=== PATIENT | female | born 1940 | race Caucasian/White ===

== ENCOUNTER 2016-11-12 12:50 | Inpatient (IN) | payer OTHER, MEDICARE ==
[~2016-11-12] VITALS: Ht 170.2 cm; Wt 77.4 kg
[~2016-11-12 12:50] MED LIST: ACET325 PO; ALBU6.7H INH; ALPR0.25 PO; ARIC5TAB PO; BUSP10TA8 PO; CEFU1TAB43 PO; ECOT325T PO; KCL10C PO; LEVA500T PO; LIPI40TA PO; MAGO400T PO; METO10TA PO; METO50TA PO; OS-CTAB3 PO; OXYB5TAB PO; PANT40IN3 PO; PLAV75TA PO; SPIR25TA PO; SYNT88TA PO; ZOFR4TAB3 SL
[2016-11-12 13:00] VITALS: BP 125/58; PULSE 60; RESP 18; TEMP 97.9; O2SAT 95
[2016-11-12 13:14] VITALS: O2SAT 97
[2016-11-12] MEDS ORDERED: SODIUM CHLORIDE 0.9% FLUSH 5 ML FLUSH IV FLUSH PRN (13:15)
--- NOTE | 2016-11-12 13:15 | PD ---
HPI Chief Complaint: Altered Mental Status Time Seen by Provider: 13:00 Travel History International Travel<30 days: No Contact w/Intl Traveler<30days: No Traveled to known affect area: No History of Present Illness HPI This is a 76-year-old female with history of dementia, hypertension, anxiety, hypothyroidism, hyperlipidemia, coronary artery disease who presents via EMS for evaluation of lethargy. History is primarily obtained by paramedics. The patient lives with her daughter. Over the past week she has had a cough and low -grade fever. She woke up this morning more lethargic than usual which prompted evaluation. When asked the patient has pain she points at the middle of her abdomen. PFSH Past Medical History Alzheimer's Disease: Yes Autoimmune Disease: No Anxiety: Yes Heart Rhythm Problems: No Cancer: No Cardiac Catheterization: No Cardiovascular Problems: Yes High Cholesterol: No Congestive Heart Failure: No Diabetes: No Endocrine: Yes Gastrointestinal Disorders: Yes Genitourinary: No Hypertension: No Immune Disorder: No Musculoskeletal: No Neurologic: Yes Psychiatric: Yes Reproductive: No Respiratory: No Myocardial Infarction: No Thyroid Disease: Yes ?: Not : 7 Para: 7 Past Surgical History Section: Yes (1) Gynecologic Surgery: Yes (GONZÁLEZ) Hysterectomy: Yes Tonsillectomy: Yes Other Surgery: Yes (COLONOSCOPY, POLYPS REMOVED) Social History Alcohol Use: No Tobacco Use: No Substance Use: No Allergies-Medications (Allergen,Severity, Reaction): Coded Allergies: Lasix (Verified Allergy, Severe, Swelling, 09/26/14) Penicillin (Verified Allergy, Intermediate, Rash, 09/26/14) Reported Meds & Prescriptions Reported Meds & Active Scripts Active Reported Proventil Hfa 6.7 GM Inh (Albuterol Sulfate) 90 Mcg/Act Aer 2 Puff INH Q6H PRN Atorvastatin (Atorvastatin Calcium) 40 Mg Tab 40 Mg PO DAILY Oscal 500/200 D-3 (Calcium Carbonate-Vitamin D) 500-200 Mg-Unit Tab 1 Tab PO DAILY Plavix (Clopidogrel Bisulfate) 75 Mg Tab 75 Mg PO DAILY Donepezil 10 Mg Tab 10 Mg PO HS Metoprolol Tartrate 25 Mg Tab 25 Mg PO BID Pantoprazole (Pantoprazole Sodium) 40 Mg Tab 40 Mg PO DAILY Aldactone (Spironolactone) 25 Mg Tab 25 Mg PO DAILY Synthroid (Levothyroxine Sodium) 75 Mcg Tab 75 Mcg PO DAILY Namenda (Memantine) 10 Mg Tab 10 Mg PO BID Seroquel (Quetiapine Fumarate) 50 Mg Tab 50 Mg PO HS Mirtazapine 15 Mg Tab 15 Mg PO HS Review of Systems ROS Limitations: Altered Mental Status Except as stated in HPI: all other systems reviewed are Neg Physical Exam Exam Limitations: Altered Mental Status Narrative GENERAL: This is a elderly appearing female who is in no acute distress. She is grimacing some and grasping at her abdomen when asked where she has pain. She responds to some commands. SKIN: Warm and dry. No obvious open wounds or pressure ulcers. HEAD: Atraumatic. Normocephalic. EYES: Pupils equal and round. No scleral icterus. No injection or drainage. ENT: No nasal bleeding or discharge. Mucous membranes pink and moist. NECK: Trachea midline. No JVD. CARDIOVASCULAR: Regular rate and rhythm. No murmur appreciated. RESPIRATORY: No accessory muscle use. Clear to auscultation. Breath sounds equal bilaterally. No crackles no wheezing. GASTROINTESTINAL: Abdomen soft, some periumbilical tenderness to palpation without guarding. Nondistended. MUSCULOSKELETAL: No obvious deformities. No clubbing. No cyanosis. No edema. NEUROLOGICAL: Awake and alert. Arousable to voice, pain. No obvious cranial nerve deficits. Normal family sociologist strength bilaterally. PSYCHIATRIC: Appropriate mood and affect; insight and judgment normal. Data Data Last Documented VS Vital Signs Date Time Temp Pulse Resp B/P Pulse Ox O2 Delivery O2 Flow Rate FiO2 11/12/16 16:37 59 18 126/61 97 Nasal Cannula 2 11/12/16 13:00 97.9 Orders Electrocardiogram (11/12/16 13:05) Complete Blood Count With Diff (11/12/16 13:05) Comprehensive Metabolic Panel (11/12/16 13:05) Creatine Kinase (Cpk) (11/12/16 13:05) Prothrombin Time / Inr (Pt) (11/12/16 13:05) Act Partial Throm Time (Ptt) (11/12/16 13:05) Troponin I (11/12/16 13:05) Lactic Acid Sepsis Protocol (11/12/16 13:05) Chest, Single Ap (11/12/16 13:05) Ct Brain W/O Iv Contrast(Rout) (11/12/16 13:05) Ecg Monitoring (11/12/16 13:05) Iv Access Insert/Monitor (11/12/16 13:05) Oximetry (11/12/16 13:05) Sodium Chloride 0.9% Flush (Ns Flush) (11/12/16 13:15) Lipase (11/12/16 13:05) Blood Culture (11/12/16 13:05) Ct Abd/Pel W Iv Contrast(Rout) (11/12/16 13:05) Electrocardiogram (11/12/16 ) Vancomycin Inj (Vancomycin Inj) (11/12/16 14:05) Aztreonam Inj (Azactam Inj) (11/12/16 14:05) Metronidazole 500 Mg Inj (Flagyl 500 Mg (11/12/16 14:05) Sodium Chlor 0.9% 1000 Ml Inj (Ns 1000 M (11/12/16 14:05) Sodium Chlor 0.9% 1000 Ml Inj (Ns 1000 M (11/12/16 14:05) Sodium Chlor 0.9% 1000 Ml Inj (Ns 1000 M (11/12/16 14:05) Potassium Chloride (Kcl) (11/12/16 14:15) Urinalysis - C+S If Indicated (11/12/16 14:30) Potassium Chlor 10 Meq Premix (Kcl 10 Me (11/12/16 14:45) Urine Culture (11/12/16 13:59) Iohexol 350 Inj (Omnipaque 350 Inj) (11/12/16 15:52) Urinary Catheter Management MARY BETH.Q8H (11/12/16 15:54) Admit Order (Ed Use Only) (11/12/16 16:45) Mri Brain W&W/O Contrast (11/12/16 ) Labs Laboratory Tests Test 11/12/16 11/12/16 13:05 13:59 White Blood Count 8.2 TH/MM3 Red Blood Count 3.56 MIL/MM3 Hemoglobin 11.3 GM/DL Hematocrit 33.5 % Mean Corpuscular Volume 94.0 FL Mean Corpuscular Hemoglobin 31.8 PG Mean Corpuscular Hemoglobin 33.8 % Concent Red Cell Distribution Width 13.2 % Platelet Count 128 TH/MM3 Mean Platelet Volume 8.7 FL Neutrophils (%) (Auto) 36.9 % Lymphocytes (%) (Auto) 53.3 % Monocytes (%) (Auto) 5.1 % Eosinophils (%) (Auto) 3.9 % Basophils (%) (Auto) 0.8 % Neutrophils # (Auto) 3.0 TH/MM3 Lymphocytes # (Auto) 4.4 TH/MM3 Monocytes # (Auto) 0.4 TH/MM3 Eosinophils # (Auto) 0.3 TH/MM3 Basophils # (Auto) 0.1 TH/MM3 CBC Comment AUTO DIFF Differential Comment AUTO DIFF CONFIRMED Platelet Estimate LOW Platelet Morphology Comment NORMAL Ovalocytes 1+ Prothrombin Time 11.0 SEC Prothromb Time International 1.0 RATIO Ratio Activated Partial 24.6 SEC Thromboplast Time Sodium Level 142 MEQ/L Potassium Level 3.3 MEQ/L Chloride Level 107 MEQ/L Carbon Dioxide Level 20.7 MEQ/L Anion Gap 14 MEQ/L Blood Urea Nitrogen 14 MG/DL Creatinine 0.98 MG/DL Estimat Glomerular Filtration 55 ML/MIN Rate Random Glucose 119 MG/DL Lactic Acid Level 3.7 mmol/L Calcium Level 8.8 MG/DL Total Bilirubin 0.6 MG/DL Aspartate Amino Transf 18 U/L (AST/SGOT) Alanine Aminotransferase 18 U/L (ALT/SGPT) Alkaline Phosphatase 108 U/L Total Creatine Kinase 30 U/L Troponin I LESS THAN 0.02 NG/ML Total Protein 6.2 GM/DL Albumin 3.2 GM/DL Lipase 68 U/L Urine Color YELLOW Urine Turbidity CLEAR Urine pH 6.5 Urine Specific [place] 1.015 Urine Protein NEG mg/dL Urine Glucose (UA) NEG mg/dL Urine Ketones NEG mg/dL Urine Occult Blood NEG Urine Nitrite NEG Urine Bilirubin NEG Urine Urobilinogen LESS THAN 2.0 MG/DL Urine Leukocyte Esterase NEG Urine RBC LESS THAN 1 /hpf Urine WBC LESS THAN 1 /hpf Urine Squamous Epithelial <1 /hpf Cells Urine Bacteria RARE /hpf Urine Mucus FEW /lpf Microscopic Urinalysis Comment CATH-CULTURE IND MDM Medical Decision Making Medical Screen Exam Complete: Yes Emergency Medical Condition: Yes Medical Record Reviewed: Yes Interpretation(s) EKG showed atrial fibrillation rate of 55, EKG is essentially unchanged from previous on September 26, 2014 CONCLUSION: 1. The cause of the patient's abdominal pain is not seen. 2. Varices in the left upper quadrant. This could be related to portal hypertension. The spleen is not enlarged, however. 3. 1.7 cm mass seen at the posteromedial left lower chest. This is incompletely evaluated on the CT of the abdomen. A CT of the chest would be recommended. 4. Fatty infiltration of the pancreas. 5. Colonic diverticula. Differential Diagnosis Pneumonia, intracranial hemorrhage, sepsis, diverticulitis, colitis, appendicitis, obstruction Narrative Course 76 year old female with baseline dementia presents with worsening lethargy for at least one day. She is also had a cough for the past week. On examination she appears to be having periumbilical abdominal pain. Plan is for basic lab work, CT brain, CT abdomen and pelvis, chest x-ray. IV established, ECG, ECG monitoring, pulse oximetry. The patient's lab work and imaging studies been reviewed. Elevated lactic acid , potassium 3.3, given IV potassium here, chest x-ray mild right lung perihilar opacity indicating atelectasis versus minimal consolidation, CT brain reveals 0.8 year hyperdense extra-axial mass. MRI is been ordered to further evaluate this. The patient was given IV fluids, broad-spectrum antibiotics. She will be admitted for sepsis, altered mental status and pneumonia. Procedures EKG Prior to Arrival: Yes Diagnosis Primary Impression: Pneumonia Qualified Code: J18.9 - Pneumonia due to infectious organism, unspecified laterality, unspecified part of lung Additional Impressions: Sepsis Qualified Code: A41.9 - Sepsis, due to unspecified organism Altered mental status Qualified Code: R41.0 - Delirium Admitting Information Admitting Physician Requests: it Mau Esparza November 12, 2016 13:14
[2016-11-12 13:43] LABS: BASOPHIL # 0.1 TH/MM3 (0-0.2); BASOPHIL % 0.8 % (0.0-2.0); EOSINOPHIL # 0.3 TH/MM3 (0-0.4); EOSINOPHIL % 3.9 % (0.0-4.0); HEMATOCRIT 33.5 % (35.0-46.0); LYMPH % 53.3 % (9.0-44.0); LYMPHOCYTE # 4.4 TH/MM3 (1.0-4.8); MEAN CORPUSCULAR HEMOGLOBIN 31.8 PG (27.0-34.0); MEAN CORPUSCULAR HGB CONC 33.8 % (32.0-36.0); MONO % 5.1 % (0.0-8.0); NEUT % 36.9 % (16.0-70.0); PLATELET COUNT 128 TH/MM3 (150-450); RED BLOOD COUNT 3.56 MIL/MM3 (4.00-5.30); RED CELL DISTRIBUTION WIDTH 13.2 % (11.6-17.2); WHITE BLOOD COUNT 8.2 TH/MM3 (4.0-11.0)
[2016-11-12 13:45] LABS: HEMO FLAGS AUTO DIFF
[2016-11-12 13:54] LABS: APTT (PATIENT) 24.6 SEC (24.3-30.1)
[2016-11-12] MEDS ORDERED: LEVO.075 PO (13:55)
[2016-11-12] MEDS ORDERED: PANT40TA3 PO (13:55)
[2016-11-12] MEDS ORDERED: NAME10TA PO (13:55)
[2016-11-12] MEDS ORDERED: PLAV75TA29 PO (13:55)
[2016-11-12] MEDS ORDERED: MIRTA15 PO (13:55)
[2016-11-12] MEDS ORDERED: METO25TA3 PO (13:55)
[2016-11-12] MEDS ORDERED: OSCA200T PO (13:55)
[2016-11-12] MEDS ORDERED: SERO50TA PO (13:55)
[2016-11-12] MEDS ORDERED: SPIR25 PO (13:55)
[2016-11-12] MEDS ORDERED: DONE10TA7 PO (13:55)
[2016-11-12] MEDS ORDERED: ATOR40TA16 PO (13:55)
[2016-11-12] MEDS ORDERED: ALBU6.7H INH (13:56)
[2016-11-12 14:02] LABS: ALT (GPT) 18 U/L (10-53); ANION GAP 14 MEQ/L (5-15); AST (GOT) 18 U/L (15-37); BICARBONATE 20.7 MEQ/L (21.0-32.0); BLOOD UREA NITROGEN 14 MG/DL (7-18); CHLORIDE 107 MEQ/L (98-107); GLOMERULAR FILTRATION RATE 55 ML/MIN (>89); POTASSIUM 3.3 MEQ/L (3.5-5.1); SODIUM (NA) 142 MEQ/L (136-145)
[2016-11-12] MEDS ORDERED: VANCOMYCIN INJ 1,000 MG in SODIUM CHLOR 0.9% 250 ML INJ 250 ML IV STA (14:05)
[2016-11-12] MEDS ORDERED: metroNIDAZOLE 500 MG INJ 100 ML IV STA (14:05)
[2016-11-12] MEDS ORDERED: SODIUM CHLOR 0.9% 1000 ML INJ 100 ML IV ONE (14:05)
[2016-11-12] MEDS ORDERED: AZTREONAM INJ 2,000 MG in SODIUM CHLORIDE 0.9% INJ 100 ML IV STA (14:05)
[2016-11-12] MEDS ORDERED: SODIUM CHLOR 0.9% 1000 ML INJ 1,000 ML IV ONE ×2 (14:05)
[2016-11-12 14:06] LABS: ALKALINE PHOSPHATASE 108 U/L (45-117); TOTAL BILIRUBIN ADULT 0.6 MG/DL (0.2-1.0)
[2016-11-12 14:10] LABS: CREATINE KINASE 30 U/L (26-192)
[2016-11-12] MEDS ORDERED: POTASSIUM CHLORIDE 20 MEQ CONTROLLED RELEASE TAB PO ONE (14:15)
[2016-11-12 14:17] LABS: OVALOCYTES 1+ (NORMAL); PLATELET ESTIMATE SMEAR LOW (NORMAL); PLATELET MORPHOLOGY NORMAL (NORMAL); SCAN/DIFF AUTO DIFF CONFIRMED
--- NOTE | 2016-11-12 14:26 | RADRPT ---
EXAM DATE/TIME: 11/12/2016 13:10 [facility] COMPARISON: CHEST SINGLE AP, September 26, 2014, 22:46. INDICATIONS : Syncope. Altered mental status. MEDICAL HISTORY : Alzheimers. SURGICAL HISTORY : None. ENCOUNTER: Initial ACUITY: 1 day PAIN SCORE: Non-responsive. LOCATION: Bilateral chest FINDINGS: Single AP view of the chest. Mild patchy right midlung opacity. Cardiomediastinal silhouette within n ormal limits. No evidence of pleural effusion or pneumothorax. CONCLUSION: Mild right mid lung perihilar opacity indicating atelectasis versus minimal consolidation. Nicolas Winslow MD on November 12, 2016 at 14:24 Board Certified Radiologist. This report was verified electronically.
[2016-11-12] MEDS ORDERED: POTASSIUM CHLOR 10 MEQ PREMIX 100 ML IV ONE (14:45)
[2016-11-12 15:06] VITALS: BP 157/67; PULSE 59; RESP 18; O2SAT 97
[2016-11-12 15:14] LABS: BACTERIA, URINE RARE /hpf; BLOOD, URINE NEG (NEG); GLUCOSE,URINE NEG (NEG); KETONE, URINE NEG (NEG); MUCUS URINE FEW /lpf (OCC); NITRITE,URINE NEG (NEG); PH, URINE 6.5 (5.0-8.5); SQUAMOUS EPITHELIAL CELL URINE <1 /hpf (0-5); URINE COLOR YELLOW (YELLW/STRAW)
[2016-11-12 15:15] LABS: COMMENT (UR) CATH-CULTURE IND; CULTURE IF INDICATED CATH CULTURE IND
--- NOTE | 2016-11-12 15:35 | PD ---
Data Data Last Documented VS Vital Signs Date Time Temp Pulse Resp B/P Pulse Ox O2 Delivery O2 Flow Rate FiO2 11/12/16 16:37 59 18 126/61 97 Nasal Cannula 2 11/12/16 13:00 97.9 Orders Electrocardiogram (11/12/16 13:05) Complete Blood Count With Diff (11/12/16 13:05) Comprehensive Metabolic Panel (11/12/16 13:05) Creatine Kinase (Cpk) (11/12/16 13:05) Prothrombin Time / Inr (Pt) (11/12/16 13:05) Act Partial Throm Time (Ptt) (11/12/16 13:05) Troponin I (11/12/16 13:05) Lactic Acid Sepsis Protocol (11/12/16 13:05) Chest, Single Ap (11/12/16 13:05) Ct Brain W/O Iv Contrast(Rout) (11/12/16 13:05) Ecg Monitoring (11/12/16 13:05) Iv Access Insert/Monitor (11/12/16 13:05) Oximetry (11/12/16 13:05) Sodium Chloride 0.9% Flush (Ns Flush) (11/12/16 13:15) Lipase (11/12/16 13:05) Blood Culture (11/12/16 13:05) Ct Abd/Pel W Iv Contrast(Rout) (11/12/16 13:05) Electrocardiogram (11/12/16 ) Vancomycin Inj (Vancomycin Inj) (11/12/16 14:05) Aztreonam Inj (Azactam Inj) (11/12/16 14:05) Metronidazole 500 Mg Inj (Flagyl 500 Mg (11/12/16 14:05) Sodium Chlor 0.9% 1000 Ml Inj (Ns 1000 M (11/12/16 14:05) Sodium Chlor 0.9% 1000 Ml Inj (Ns 1000 M (11/12/16 14:05) Sodium Chlor 0.9% 1000 Ml Inj (Ns 1000 M (11/12/16 14:05) Potassium Chloride (Kcl) (11/12/16 14:15) Urinalysis - C+S If Indicated (11/12/16 14:30) Potassium Chlor 10 Meq Premix (Kcl 10 Me (11/12/16 14:45) Urine Culture (11/12/16 13:59) Iohexol 350 Inj (Omnipaque 350 Inj) (11/12/16 15:52) Urinary Catheter Management MARY BETH.Q8H (11/12/16 15:54) Labs Laboratory Tests Test 11/12/16 11/12/16 13:05 13:59 White Blood Count 8.2 TH/MM3 Red Blood Count 3.56 MIL/MM3 Hemoglobin 11.3 GM/DL Hematocrit 33.5 % Mean Corpuscular Volume 94.0 FL Mean Corpuscular Hemoglobin 31.8 PG Mean Corpuscular Hemoglobin 33.8 % Concent Red Cell Distribution Width 13.2 % Platelet Count 128 TH/MM3 Mean Platelet Volume 8.7 FL Neutrophils (%) (Auto) 36.9 % Lymphocytes (%) (Auto) 53.3 % Monocytes (%) (Auto) 5.1 % Eosinophils (%) (Auto) 3.9 % Basophils (%) (Auto) 0.8 % Neutrophils # (Auto) 3.0 TH/MM3 Lymphocytes # (Auto) 4.4 TH/MM3 Monocytes # (Auto) 0.4 TH/MM3 Eosinophils # (Auto) 0.3 TH/MM3 Basophils # (Auto) 0.1 TH/MM3 CBC Comment AUTO DIFF Differential Comment AUTO DIFF CONFIRMED Platelet Estimate LOW Platelet Morphology Comment NORMAL Ovalocytes 1+ Prothrombin Time 11.0 SEC Prothromb Time International 1.0 RATIO Ratio Activated Partial 24.6 SEC Thromboplast Time Sodium Level 142 MEQ/L Potassium Level 3.3 MEQ/L Chloride Level 107 MEQ/L Carbon Dioxide Level 20.7 MEQ/L Anion Gap 14 MEQ/L Blood Urea Nitrogen 14 MG/DL Creatinine 0.98 MG/DL Estimat Glomerular Filtration 55 ML/MIN Rate Random Glucose 119 MG/DL Lactic Acid Level 3.7 mmol/L Calcium Level 8.8 MG/DL Total Bilirubin 0.6 MG/DL Aspartate Amino Transf 18 U/L (AST/SGOT) Alanine Aminotransferase 18 U/L (ALT/SGPT) Alkaline Phosphatase 108 U/L Total Creatine Kinase 30 U/L Troponin I LESS THAN 0.02 NG/ML Total Protein 6.2 GM/DL Albumin 3.2 GM/DL Lipase 68 U/L Urine Color YELLOW Urine Turbidity CLEAR Urine pH 6.5 Urine Specific [place] 1.015 Urine Protein NEG mg/dL Urine Glucose (UA) NEG mg/dL Urine Ketones NEG mg/dL Urine Occult Blood NEG Urine Nitrite NEG Urine Bilirubin NEG Urine Urobilinogen LESS THAN 2.0 MG/DL Urine Leukocyte Esterase NEG Urine RBC LESS THAN 1 /hpf Urine WBC LESS THAN 1 /hpf Urine Squamous Epithelial <1 /hpf Cells Urine Bacteria RARE /hpf Urine Mucus FEW /lpf Microscopic Urinalysis Comment CATH-CULTURE IND MDM Supervised Visit with CARLITO: Yes Narrative Course I, Dr. Thomas, have reviewed the advance practice practioner's documentation and am in agreement, met with the patient face to face, made the diagnosis, and the medical decision making was done by me. *My assessment and Findings: 76-year-old female with history of dementia, alert to self, possibly place only at baseline here with altered mental status, increasing lethargy over the course the last several days per daughter. Dry nonproductive cough at home, though no documented fever. Per EMS did have tactile fever. Increasing drowsiness, mumbling speech. Patient has not complained of anything to daughter, though on exam does have periumbilical abdominal tenderness to palpation, winces. Lungs are clear. Alert to person, but not place or time, able to tell me her daughter's name. Laboratory workup notable for hypokalemia potassium 3.3. This was replaced. Lactate elevated at 3.7. Urinalysis and chest x-ray negative for evidence of infection. Patient was given IV fluids and empirically covered with Azactam, Flagyl, vancomycin. CT of the brain and abdomen and pelvis showed a possible extra-axial lesion of the brain versus aneurysm, otherwise unremarkable. Recommend MRI. This was ordered for urgent evaluation. X-ray with atelectasis versus pneumonia. Patient will be admitted for further management of sepsis. Critical Care Narrative Aggregate critical care time was 35 minutes. Time to perform other separately billable procedures was not included in the critical care time. My time did not include minutes spent treating any other patients simultaneously or on activities that did not directly contribute to the patient's treatment. The services I provided to this patient were to treat and/or prevent clinically significant deterioration that could result in: Cardiopulmonary decompensation, neurologic decompensation, , disability I provided critical care services requiring my management, as noted below: Chart data review, documentation time, medication orders and management, vital sign assessments/reviewing monitor data, ordering and reviewing lab tests, ordering and interpreting/reviewing x-rays and diagnostic studies, care of the patient and discussion of the patient with the admitting physicians. Sepsis Criteria Severe Sepsis (+one): Lactate >2 Diagnosis Primary Impression: Sepsis Qualified Code: A41.9 - Sepsis, due to unspecified organism Additional Impressions: Altered mental status Qualified Code: R41.0 - Delirium Lactic acidosis Hypokalemia Pneumonia Admitting Information Admitting Physician Requests: Admit Jeniffer Thomas MD November 12, 2016 15:35
[2016-11-12 15:36] LABS: LACTIC ACID GHOST NOT REPORTABLE
[2016-11-12] MEDS ORDERED: IOHEXOL 350 MG/ML 10 ML VIAL (for RAD DIAG) IV ONE (15:52)
[2016-11-12 16:09] VITALS: BP 135/65; PULSE 61; RESP 18; O2SAT 97
--- NOTE | 2016-11-12 16:25 | RADRPT ---
EXAM DATE/TIME: 11/12/2016 15:41 [facility] COMPARISON: No previous studies available for comparison. INDICATIONS : Altered mental status RADIATION DOSE: 69.67 CTDIvol (mGy) MEDICAL HISTORY : Cardiovascular disease. Alzheimer's. SURGICAL HISTORY : Hysterectomy. ENCOUNTER: Initial ACUITY: 1 day PAIN SCALE: 0/10 LOCATION: confusion TECHNIQUE: Multiple contiguous axial images were obtained of the head. Using automated exposure control and adj ustment of the mA and/or kV according to patient size, radiation dose was kept as low as reasonably a chievable to obtain optimal diagnostic quality images. FINDINGS: CEREBRUM: The ventricles and cortical sulci are widened. There is a 0.8 cm hyperdense mass seen in the extra-ax ial right anterior pre-pontine cistern. No evidence of midline shift, hemorrhage or acute infarction . No extra-axial fluid collections are seen. POSTERIOR FOSSA: The cerebellum and brainstem are intact. The 4th ventricle is midline. The cerebellopontine angle i s unremarkable. EXTRACRANIAL: The visualized portion of the orbits is intact. SKULL: The calvaria is intact. No evidence of skull fracture. CONCLUSION: 1. 0.8 cm hyperdense extra-axial mass in the anterior right pre-pontine cistern. An aneurysm or other mass such as a meningioma should be considered. Provided there is no contraindication, this should b e further evaluated with a MRI examination. No acute mass effect is seen. 2. Atrophy. Behzad Valverde MD on November 12, 2016 at 16:19 Board Certified Radiologist. This report was verified electronically.
[2016-11-12 16:37] VITALS: BP 126/61; PULSE 59; RESP 18; O2SAT 97
--- NOTE | 2016-11-12 16:40 | RADRPT ---
EXAM DATE/TIME: 11/12/2016 15:48 [facility] COMPARISON: CHEST SINGLE AP, November 12, 2016, 13:10. CT ABDOMEN & PELVIS W CONTRAST, February 22, 2014, 12:38. INDICATIONS : Umbilical abdomen pain, fever, cough. IV CONTRAST: 82 cc Omnipaque 350 (iohexol) IV ORAL CONTRAST: No oral contrast ingested. RADIATION DOSE: 15.87 CTDIvol (mGy) MEDICAL HISTORY : Cardiovascular disease. Hyperthyroidism. Dementia. Hyperlipidemia. SURGICAL HISTORY : Hysterectomy. ENCOUNTER: Initial ACUITY: 1 week PAIN SCALE: 5/10 LOCATION: Umbilical abdomen TECHNIQUE: Volumetric scanning of the abdomen and pelvis was performed. Using automated exposure control and adjustment of the mA and/or kV according to patient size, radiation dose was kept as low as reasonably achievable to obtain optimal diagnostic quality images. FINDINGS: The liver is free of focal lesions. There is some periportal edema seen. This was seen previously a nd appears unchanged. The spleen and adrenal glands appear normal. There are numerous vessels seen in the left upper quadrant likely related to varices. There is fatty infiltration of the pancreas. Kidneys are unremarkable. There are scattered atherosclerotic calcifications seen throughout the art erial system but a significant aneurysm is not seen. The IVC is unremarkable. Significant adenopath y is not appreciated. Significant bowel dilatation is not seen. The colon appears collapsed. There are some scattered div erticula especially in the sigmoid region. Significant surrounding inflammatory change is not clearl y seen. The patient appears to be status post hysterectomy. There is a Cochran catheter in the urinar y bladder. There does appear to be some increased density identified at the posterior lung base likely represent ing atelectasis. There also is a questionable 1.7 cm soft-tissue mass seen at the posteromedial left lower chest seen on the first image obtained for the CT examination of the abdomen. This is incompl etely evaluated on the CT of the abdomen. There are healed fracture deformities at several right ribs. There is degenerative change at the lum bar spine. CONCLUSION: 1. The cause of the patient's abdominal pain is not seen. 2. Varices in the left upper quadrant. This could be related to portal hypertension. The spleen is not enlarged, however. 3. 1.7 cm mass seen at the posteromedial left lower chest. This is incompletely evaluated on the CT of the abdomen. A CT of the chest would be recommended. 4. Fatty infiltration of the pancreas. 5. Colonic diverticula. Behzad Valverde MD on November 12, 2016 at 16:26 Board Certified Radiologist. This report was verified electronically.
--- NOTE | 2016-11-12 17:07 | HHI.HP ---
[facility] Britney Torrez MD Admission Diagnosis sepsis, pneumonia, AMS Diagnoses: Chief Complaint: Altered Mental Status Travel History International Travel<30 Days: No Contact w/Intl Traveler <30 Da: No Traveled to Known Affected Are: No History of Present Illness This is a 76-year-old female with history of dementia, hypertension, anxiety, hypothyroidism, hyperlipidemia, coronary artery disease who presents via EMS for evaluation of lethargy. History is primarily obtained by paramedics. The patient lives with her daughter. Over the past week she has had a cough and low-grade fever. She woke up this morning more lethargic than usual which prompted evaluation. When asked the patient has pain she points at the middle of her abdomen. discussed with her Daughter Mrs. Elisa Garcia who say she started having dizziness, altered mental status with hallucinations pale. Past Family Social History Past Medical History Dementia Alzheimer's Disease Hypertension Hypothyroidism Hyperlipidemia CAD Anxiety disorder Past Surgical History C section GONZÁLEZ Tonsillectomy PCI and stent placement Reported Medications Reported Meds & Active Scripts Active Reported Proventil Hfa 6.7 GM Inh (Albuterol Sulfate) 90 Mcg/Act Aer 2 Puff INH Q6H PRN Atorvastatin (Atorvastatin Calcium) 40 Mg Tab 40 Mg PO DAILY Oscal 500/200 D-3 (Calcium Carbonate-Vitamin D) 500-200 Mg-Unit Tab 1 Tab PO DAILY Plavix (Clopidogrel Bisulfate) 75 Mg Tab 75 Mg PO DAILY Donepezil 10 Mg Tab 10 Mg PO HS Metoprolol Tartrate 25 Mg Tab 25 Mg PO BID Pantoprazole (Pantoprazole Sodium) 40 Mg Tab 40 Mg PO DAILY Aldactone (Spironolactone) 25 Mg Tab 25 Mg PO DAILY Synthroid (Levothyroxine Sodium) 75 Mcg Tab 75 Mcg PO DAILY Namenda (Memantine) 10 Mg Tab 10 Mg PO BID Seroquel (Quetiapine Fumarate) 50 Mg Tab 50 Mg PO HS Mirtazapine 15 Mg Tab 15 Mg PO HS Allergies: Coded Allergies: Lasix (Verified Allergy, Severe, Swelling, 09/26/14) Penicillin (Verified Allergy, Intermediate, Rash, 09/26/14) Active Ordered Medications Current Medications Medications (Trade) Dose Ordered Sig/Sp Route Start Time Stop Time Status Last Admin IV Flush 2 ml 2 ml UNSCH PRN IV FLUSH 11/12/16 13:15 Aztreonam 1000 mg/ Sodium Chloride 100 ml @ 200 mls/hr Q12H IV 11/13/16 02:00 UNV Pharmacy Profile Note 0 ml @ 0 mls/hr UNSCH OTHER 11/12/16 17:15 UNV (Flagyl 500 Mg Inj) 100 ml @ 100 mls/hr Q8H IV 11/12/16 22:00 UNV Guaifenesin 600 mg 600 mg BID PO 11/12/16 21:00 UNV (NS 1000 ml Inj) 1,000 ml @ 100 mls/hr Q10H IV 11/12/16 17:15 UNV (NS Flush) 2 ml UNSCH PRN IV FLUSH 11/12/16 17:15 UNV (NS Flush) 2 ml BID IV FLUSH 11/12/16 21:00 UNV (Tylenol) 650 mg Q4H PRN PO 11/12/16 17:15 UNV (Zofran Inj) 4 mg Q6H PRN IVP 11/12/16 17:15 UNV (Dulcolax Supp) 10 mg DAILY PRN RECTAL 11/12/16 17:15 UNV (Colace) 100 mg Q12H PO 11/12/16 17:15 UNV (Narcan Inj) 0.4 mg UNSCH PRN IV 11/12/16 17:15 UNV (Lipitor) 40 mg DAILY PO 11/13/16 09:00 UNV (Plavix) 75 mg DAILY PO 11/13/16 09:00 UNV (Aricept) 10 mg HS PO 11/12/16 21:00 UNV (Synthroid) 75 mcg DAILY PO 11/13/16 09:00 UNV (Namenda) 10 mg BID PO 11/12/16 21:00 UNV (Lopressor) 25 mg BID PO 11/12/16 21:00 UNV (Remeron) 15 mg HS PO 11/12/16 21:00 UNV (Protonix) 40 mg DAILY PO 11/13/16 09:00 UNV (Aldactone) 25 mg DAILY PO 11/13/16 09:00 UNV Non-Formulary Medication 1 tab DAILY PO 11/13/16 09:00 UNV Non-Formulary Medication 50 mg HS PO 11/12/16 21:00 UNV (Heparin Inj) 5,000 units Q8HR SQ 11/12/16 22:00 UNV Family History Asked she does not know. Social History She lives with her Daughter and son in law. Denies any toxic habits Physical Exam Vital Signs Vital Signs Date Time Temp Pulse Resp B/P Pulse Ox O2 Delivery O2 Flow Rate FiO2 11/12/16 16:37 59 18 126/61 97 Nasal Cannula 2 11/12/16 16:09 61 18 135/65 97 Nasal Cannula 2 11/12/16 15:06 59 18 157/67 97 Nasal Cannula 2 11/12/16 13:30 60 18 95 Room Air 11/12/16 13:14 97 Nasal Cannula 2 11/12/16 13:00 97.9 60 18 125/58 95 Physical Exam GENERAL: This is a elderly appearing female who is in no acute distress. She is grimacing some and grasping at her abdomen when asked where she has pain. She responds to some commands. SKIN: Warm and dry. No obvious open wounds or pressure ulcers. HEAD: Atraumatic. Normocephalic. EYES: Pupils equal and round. No scleral icterus. No injection or drainage. ENT: No nasal bleeding or discharge. Mucous membranes pink and moist. NECK: Trachea midline. No JVD. CARDIOVASCULAR: Regular rate and rhythm. No murmur appreciated. RESPIRATORY: No accessory muscle use. Clear to auscultation. Breath sounds equal bilaterally. No crackles no wheezing. GASTROINTESTINAL: Abdomen soft, some periumbilical tenderness to palpation without guarding. Nondistended. MUSCULOSKELETAL: No obvious deformities. No clubbing. No cyanosis. No edema. NEUROLOGICAL: Awake and alert. Arousable to voice, pain. No obvious cranial nerve deficits. 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 PSYCHIATRIC: Appropriate mood and affect; insight and judgment normal. Laboratory Laboratory Tests Test 11/12/16 11/12/16 13:05 13:59 White Blood Count 8.2 Red Blood Count 3.56 Hemoglobin 11.3 Hematocrit 33.5 Mean Corpuscular Volume 94.0 Mean Corpuscular Hemoglobin 31.8 Mean Corpuscular Hemoglobin 33.8 Concent Red Cell Distribution Width 13.2 Platelet Count 128 Mean Platelet Volume 8.7 Neutrophils (%) (Auto) 36.9 Lymphocytes (%) (Auto) 53.3 Monocytes (%) (Auto) 5.1 Eosinophils (%) (Auto) 3.9 Basophils (%) (Auto) 0.8 Neutrophils # (Auto) 3.0 Lymphocytes # (Auto) 4.4 Monocytes # (Auto) 0.4 Eosinophils # (Auto) 0.3 Basophils # (Auto) 0.1 CBC Comment AUTO DIFF Differential Comment AUTO DIFF CONFIRMED Platelet Estimate LOW Platelet Morphology Comment NORMAL Ovalocytes 1+ Prothrombin Time 11.0 Prothromb Time International 1.0 Ratio Activated Partial 24.6 Thromboplast Time Sodium Level 142 Potassium Level 3.3 Chloride Level 107 Carbon Dioxide Level 20.7 Anion Gap 14 Blood Urea Nitrogen 14 Creatinine 0.98 Estimat Glomerular Filtration 55 Rate Random Glucose 119 Lactic Acid Level 3.7 Calcium Level 8.8 Total Bilirubin 0.6 Aspartate Amino Transf 18 (AST/SGOT) Alanine Aminotransferase 18 (ALT/SGPT) Alkaline Phosphatase 108 Total Creatine Kinase 30 Troponin I LESS THAN 0.02 Total Protein 6.2 Albumin 3.2 Lipase 68 Urine Color YELLOW Urine Turbidity CLEAR Urine pH 6.5 Urine Specific [place] 1.015 Urine Protein NEG Urine Glucose (UA) NEG Urine Ketones NEG Urine Occult Blood NEG Urine Nitrite NEG Urine Bilirubin NEG Urine Urobilinogen LESS THAN 2.0 Urine Leukocyte Esterase NEG Urine RBC LESS THAN 1 Urine WBC LESS THAN 1 Urine Squamous Epithelial <1 Cells Urine Bacteria RARE Urine Mucus FEW Microscopic Urinalysis Comment CATH-CULTURE IND Date/Time Procedure Status Source Growth 11/12/16 13:59 Urine Culture Received Urine Catheterized Urine Pending 11/12/16 13:17 Aerobic Blood Culture Received Blood Peripheral Pending 11/12/16 13:17 Anaerobic Blood Culture Received Blood Peripheral Pending Result Diagram: 11/12/16 1305 11/12/16 1305 Imaging Last Impressions Head CT 11/12/16 1305 Signed Impressions: Service Date/Time: Saturday, November 12, 2016 15:41 - CONCLUSION: 1. 0.8 cm hyperdense extra-axial mass in the anterior right pre-pontine cistern. An aneurysm or other mass such as a meningioma should be considered. Provided there is no contraindication, this should be further evaluated with a MRI examination. No acute mass effect is seen. 2. Atrophy. Behzad Valverde MD Chest X-Ray 11/12/16 1305 Signed Impressions: Service Date/Time: Monday, November 12, 2016 13:10 - CONCLUSION: Mild right mid lung perihilar opacity indicating atelectasis versus minimal consolidation. Nicolas Winslow MD Assessment and Plan Assessment and Plan 1. Acute on chronic Metabolic encephalopathy secondary to Dementia, probable Sepsis she has positive Lactic Acid 3.7 CXR positive for probable Pneumonia, given IV fluids, was started on Vancomycin, Azactam and Flagyl in ER she complaint also of some abdominal pain, the antibiotics may be de escalated fast if blood cultures negative all this may be related to Dementia, and dehydration. will hydrate, asked for Dehydrator Tender and Physical therapy evaluation. following blood cultures. 2. Dementia Alzheimer's Disease continue home medicines 3. Hypertension continue Home medicines 4. Hypothyroidism to continue Hormonal replacement 5. Hyperlipidemia to continue Statins 6. CAD status post PCI and stent placement asked for Cardiac enzymes, cardiac monitoring and following. 7. Anxiety disorder continue home medicines. 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 Code Status Full Code. Discussed Condition With Discussed with her Daughter Mrs. Elisa Garcia. I had the Pleasure to talk about this case with Emergency Medicine Specialist Doctor Jeniffer Thomas, her input and recommendations were highly appreciated. Physician Certification 2 Midnight Certification Type: Admission for Inpatient Services Order for Inpatient Services The services are ordered in accordance with Medicare regulations or non- Medicare payer requirements, as applicable. In the case of services not specified as inpatient-only, they are appropriately provided as inpatient services in accordance with the 2-midnight benchmark. Estimated LOS (days): 3 days is the estimated time the patient will need to remain in the hospital, assuming treatment plan goals are met and no additional complications. Post-Hospital Plan: Not yet determined Geovanni Guerrero MD November 12, 2016 17:07
[2016-11-12] MEDS ORDERED: NALOXONE HCL 0.4 MG/ML AMP IV PRN (17:15)
[2016-11-12] MEDS ORDERED: ACETAMINOPHEN 325 MG TAB PO PRN (17:15)
[2016-11-12] MEDS ORDERED: Vancomycin Consult Pharmacy 1 EA OTHER SCH (17:15)
[2016-11-12] MEDS ORDERED: HEPARIN SODIUM - SQ 10,000 UNITS/ML VIAL SQ SCH (17:15)
[2016-11-12] MEDS ORDERED: BISACODYL 10 MG SUPP RECTAL PRN (17:15)
[2016-11-12] MEDS ORDERED: ONDANSETRON HCL 4 MG/2 ML VIAL IVP PRN (17:15)
[2016-11-12] MEDS ORDERED: SODIUM CHLORIDE 0.9% FLUSH 10 ML FLUSH IV FLUSH PRN (17:15)
[2016-11-12] MEDS: SODIUM CHLOR 0.9% 1000 ML INJ 1,000 ML IV SCH (18:25)
[2016-11-12] MEDS: DOCUSATE SODIUM 100 MG CAP PO SCH (18:32)
[2016-11-12 20:00] VITALS: BP 138/63; PULSE 60; RESP 18; TEMP 95.6; O2SAT 98
[2016-11-12] MEDS: SODIUM CHLORIDE 0.9% FLUSH 10 ML FLUSH IV FLUSH SCH (20:38)
[2016-11-12] MEDS: metroNIDAZOLE 500 MG INJ 100 ML IV SCH (20:43)
[2016-11-12] MEDS: MEMANTINE HCL 10 MG TAB PO SCH (20:48)
[2016-11-12] MEDS: MIRTAZAPINE 15 MG TAB PO SCH (20:48)
[2016-11-12] MEDS: DONEPEZIL HCL 5 MG TAB PO SCH (20:48)
[2016-11-12] MEDS: guaiFENesin E.R. 600 MG TAB PO SCH (20:48)
[2016-11-12] MEDS: QUEtiapine FUMARATE 25 MG TAB PO SCH (20:48)
[2016-11-12] MEDS: HEPARIN SODIUM - SQ 10,000 UNITS/ML VIAL SQ SCH (20:49)
[2016-11-12] MEDS: METOPROLOL TARTRATE 25 MG TAB PO SCH (20:51)
[2016-11-12] MEDS ORDERED: NON-FORMULARY DRUG (Quetiapine (Seroquel) 50 MG) PO SCH (21:00)
[2016-11-12 21:02] LABS: CREATINE KINASE 38 U/L (26-192)
[2016-11-13] VITALS (9 sets, daily range): BP systolic 110–129; BP diastolic 50–63; PULSE 62–80; RESP 16–19; TEMP 96–97.8; O2SAT 94–100
[2016-11-13] MEDS: RESP: ALBUTEROL 2.5 MG/IPRATROPIUM 0.5 MG NEB (SCH) NEB ×6 (00:07→20:00)
[2016-11-13 01:28] LABS: AUTOMATED NEUTROPHIL # 3.8 TH/MM3 (1.8-7.7); BASOPHIL % 0.6 % (0.0-2.0); EOSINOPHIL % 0.6 % (0.0-4.0); HEMATOCRIT 28.7 % (35.0-46.0); HEMO FLAGS DIFF FINAL; LYMPH % 23.5 % (9.0-44.0); LYMPHOCYTE # 1.3 TH/MM3 (1.0-4.8); MEAN CELL VOLUME 94.5 FL (80.0-100.0); MEAN CORPUSCULAR HEMOGLOBIN 32.4 PG (27.0-34.0); MEAN CORPUSCULAR HGB CONC 34.3 % (32.0-36.0); MONO % 5.2 % (0.0-8.0); NEUT % 70.1 % (16.0-70.0); PLATELET COUNT 100 TH/MM3 (150-450); RED BLOOD COUNT 3.04 MIL/MM3 (4.00-5.30); RED CELL DISTRIBUTION WIDTH 13.4 % (11.6-17.2); WHITE BLOOD COUNT 5.4 TH/MM3 (4.0-11.0)
[2016-11-13 01:35] LABS: PROTHROMBIN TIME - PATIENT 11.6 SEC (9.8-11.6)
[2016-11-13 01:49] LABS: ANION GAP 10 MEQ/L (5-15); BICARBONATE 23.8 MEQ/L (21.0-32.0); BLOOD UREA NITROGEN 12 MG/DL (7-18); CHLORIDE 112 MEQ/L (98-107); GLOMERULAR FILTRATION RATE 76 ML/MIN (>89); POTASSIUM 3.7 MEQ/L (3.5-5.1); SODIUM (NA) 146 MEQ/L (136-145)
[2016-11-13 01:58] LABS: CREATINE KINASE 32 U/L (26-192)
[2016-11-13] MEDS: AZTREONAM INJ 1,000 MG in SODIUM CHLORIDE 0.9% INJ 100 ML IV SCH ×2 (02:12→14:35)
[2016-11-13] MEDS: LEVOTHYROXINE SODIUM 75 MCG TAB PO SCH (05:24)
[2016-11-13] MEDS: HEPARIN SODIUM - SQ 10,000 UNITS/ML VIAL SQ SCH ×3 (05:24→23:52)
[2016-11-13] MEDS: DOCUSATE SODIUM 100 MG CAP PO SCH ×2 (05:24→16:52)
[2016-11-13] MEDS: metroNIDAZOLE 500 MG INJ 100 ML IV SCH ×3 (05:25→23:51)
--- NOTE | 2016-11-13 07:43 | HHI.PR ---
Subjective Remarks in no acute distress. afebrile. pleasantly confused. Objective Vitals Vital Signs Date Time Temp Pulse Resp B/P Pulse Ox O2 Delivery O2 Flow Rate FiO2 11/13/16 04:37 71 11/13/16 04:00 97.4 68 17 120/62 98 11/13/16 00:10 94 Nasal Cannula 2.00 11/13/16 00:00 96.0 62 17 127/63 98 11/12/16 20:00 95.6 60 18 138/63 98 11/12/16 16:37 59 18 126/61 97 Nasal Cannula 2 11/12/16 16:09 61 18 135/65 97 Nasal Cannula 2 11/12/16 15:06 59 18 157/67 97 Nasal Cannula 2 11/12/16 13:30 60 18 95 Room Air 11/12/16 13:14 97 Nasal Cannula 2 11/12/16 13:00 97.9 60 18 125/58 95 I/O 11/12/16 11/12/16 11/12/16 11/13/16 11/13/16 11/13/16 07:00 15:00 23:00 07:00 15:00 23:00 Intake Total 432 ml 1021 ml Output Total 1400 ml 500 ml Balance -968 ml 521 ml Intake Oral 240 ml 240 ml IV Total 192 ml 781 ml Output Urine Total 1400 ml 500 ml # Bowel Movements 1 1 Result Diagram: 11/13/1611411/13/16114 Imaging Last Impressions Head CT 11/12/16 130 Signed Impressions: Service Date/Time: Saturday, November 12, 2016 15:41 - CONCLUSION: 1. 0.8 cm hyperdense extra-axial mass in the anterior right pre-pontine cistern. An aneurysm or other mass such as a meningioma should be considered. Provided there is no contraindication, this should be further evaluated with a MRI examination. No acute mass effect is seen. 2. Atrophy. Behzad Valverde MD Chest X-Ray 11/12/161304 Signed Impressions: Service Date/Time: Saturday, November 12, 2016 13:10 - CONCLUSION: Mild right mid lung perihilar opacity indicating atelectasis versus minimal consolidation. Nicolas Winslow MD Abdomen/Pelvis CT 11/12/165 Signed Impressions: Service Date/Time: Saturday, November 12, 2016 15:48 - CONCLUSION: 1. The cause of the patient's abdominal pain is not seen. 2. Varices in the left upper quadrant. This could be related to portal hypertension. The spleen is not enlarged, however. 3. 1.7 cm mass seen at the posteromedial left lower chest. This is incompletely evaluated on the CT of the abdomen. A CT of the chest would be recommended. 4. Fatty infiltration of the pancreas. 5. Colonic diverticula. Behzad Valverde MD Objective Remarks GENERAL: This is a well-nourished, well-developed patient, in no apparent distress. CARDIOVASCULAR: Regular rate and regular rhythm without murmurs, gallops, or rubs. RESPIRATORY: Clear to auscultation. Breath sounds equal bilaterally. No wheezes , rales, or rhonchi. GASTROINTESTINAL: Abdomen soft, non-tender, nondistended. Normal, active bowel sounds MUSCULOSKELETAL: Extremities without clubbing, cyanosis, or edema. NEURO: demented Procedures none Medications and IVs Current Medications IV Flush 2 ml 2 ml UNSCH PRN IV FLUSH FLUSH AFTER USING IV ACCESS; Start at 13:15; Stop 11/12/16 at 17:49; Status DC Vancomycin HCl 1000 mg/Sodium Chloride 250 ml @ 250 mls/hr ONCE STAT IV Last administered on 11/12/16 14:32; Start 11/12/16 at 14:05; Stop 11/12/16 at 15:04 ; Status DC Aztreonam 2000 mg/ Sodium Chloride 100 ml @ 200 mls/hr ONCE STAT IV Last administered on 11/12/16 15:25; Start 11/12/16 at 14:05; Stop 11/12/16 at 14:34 ; Status DC Metronidazole 100 ml @ 100 mls/hr ONCE STAT IV Last administered on 14:12; Start 11/12/16 at 14:05; Stop 11/12/16 at 15:04; Status DC Sodium Chloride 1,000 ml @ 1,000 mls/hr Q1H ONCE IV Last administered on 14:12; Start 11/12/16 at 14:05; Stop 11/12/16 at 15:04; Status DC Sodium Chloride 1,000 ml @ 1,000 mls/hr Q1H ONCE IV Last administered on 14:17; Start 11/12/16 at 14:05; Stop 11/12/16 at 15:04; Status DC Sodium Chloride (NS 1000 ml Inj) 100 ml @ 1,000 mls/hr Q6M ONCE IV Last administered on 11/12/16 14:32; Start 11/12/16 at 14:05; Stop 11/12/16 at 14:18 ; Status DC Potassium Chloride 60 meq 60 meq ONCE ONCE PO ; Start 11/12/16 at 14:15; Stop 11/12/16 at 14:37; Status DC Potassium Chloride (KCl 10 Meq Premix Inj) 100 ml @ 100 mls/hr BOLUS ONCE IV Last administered on 11/12/16 15:06; Start 11/12/16 at 14:45; Stop 11/12/16 at 15:44; Status DC Iohexol 85 ml 85 ml STK-MED ONCE IV Last administered on 11/12/16 15:52; Start 11/12/16 at 15:52; Stop 11/12/16 at 15:53; Status DC Aztreonam 1000 mg/ Sodium Chloride 100 ml @ 200 mls/hr Q12H IV Last administered on 11/13/16 02:12; Start 11/13/16 at 02:00 Pharmacy Profile Note 0 ml @ 0 mls/hr UNSCH OTHER ; Start 11/12/16 at 17:15 Metronidazole (Flagyl 500 Mg Inj) 100 ml @ 100 mls/hr Q8H IV Last administered on 11/13/16 05:25; Start 11/12/16 at 22:00 Albuterol/ Ipratropium (Duoneb Neb) 1 ampule Q4HR NEB NEB Last administered on 11/13/16 04:00; Start 11/12/16 at 20:00 Guaifenesin 600 mg 600 mg BID PO Last administered on 11/12/16 20:48; Start at 21:00 Sodium Chloride (NS 1000 ml Inj) 1,000 ml @ 83 mls/hr Q12H3M IV Last administered on 11/12/16 18:25; Start 11/12/16 at 18:00 Sodium Chloride (NS Flush) 2 ml UNSCH PRN IV FLUSH FLUSH AFTER USING IV ACCESS ; Start 11/12/16 at 17:15 Sodium Chloride (NS Flush) 2 ml BID IV FLUSH ; Start 11/12/16 at 21:00 Acetaminophen (Tylenol) 650 mg Q4H PRN PO TEMP > 100.4; Start 11/12/16 at 17:15 Ondansetron HCl (Zofran Inj) 4 mg Q6H PRN IVP NAUSEA OR VOMITING; Start at 17:15 Bisacodyl (Dulcolax Supp) 10 mg DAILY PRN RECTAL CONSTIPATION; Start 11/12/16 at 17:15 Docusate Sodium (Colace) 100 mg Q12H PO Last administered on 11/13/16 05:24; Start 11/12/16 at 18:00 Heparin Sodium (Porcine) (Heparin Inj) 5,000 units Q12H SQ ; Start 11/12/16 at 17:15; Stop 11/12/16 at 17:20; Status DC Naloxone HCl (Narcan Inj) 0.4 mg UNSCH PRN IV SEE LABEL COMMENTS; Start at 17:15 Atorvastatin Calcium (Lipitor) 40 mg DAILY PO ; Start 11/13/16 at 09:00 Clopidogrel Bisulfate (Plavix) 75 mg DAILY PO ; Start 11/13/16 at 09:00 Donepezil HCl (Aricept) 10 mg HS PO Last administered on 11/12/16 20:48; Start 11/12/16 at 21:00 Levothyroxine Sodium (Synthroid) 75 mcg DAILY@06 PO Last administered on 05:24; Start 11/13/16 at 06:00 Memantine (Namenda) 10 mg BID PO Last administered on 11/12/16 20:48; Start at 21:00 Metoprolol Tartrate (Lopressor) 25 mg BID PO ; Start 11/12/16 at 21:00 Mirtazapine (Remeron) 15 mg HS PO Last administered on 11/12/16 20:48; Start 11/12/16 at 21:00 Pantoprazole Sodium (Protonix) 40 mg DAILY PO ; Start 11/13/16 at 09:00 Spironolactone (Aldactone) 25 mg DAILY PO ; Start 11/13/16 at 09:00 Non-Formulary Medication 1 tab DAILY PO CA; Start 11/13/16 at 09:00; Status UNV Non-Formulary Medication 50 mg HS PO ; Start 11/12/16 at 21:00; Status UNV Heparin Sodium (Porcine) (Heparin Inj) 5,000 units Q8HR SQ Last administered on 11/13/16 05:24; Start 11/12/16 at 22:00 Quetiapine Fumarate (SEROquel) 50 mg HS PO Last administered on 11/12/16 20:48 ; Start 11/12/16 at 21:00 Calcium/Vitamin D 500 mg 500 mg DAILY PO ; Start 11/13/16 at 09:00 Vancomycin HCl/ Sodium Chloride (Vancomycin Inj/ NS 500 ml Inj) 514 ml @ 250 mls/hr Q24H IV ; Start 11/13/16 at 08:00 Miscellaneous Information SPECIFIC LAB TO BE DRAWN:[facility] DATE TO BE DRDamon.. ONCE ONCE .XX ; Start 11/15/16 at 07:45; Stop 11/15/16 at 07:46 A/P Assessment and Plan A/P 1. Acute on chronic Metabolic encephalopathy secondary to Dementia, probable Sepsis she has positive Lactic Acid 3.7 CXR positive for probable Pneumonia, given IV fluids, was started on Vancomycin, Azactam and Flagyl in ER will deescalate the antibiotics soon when the cultures resulted. 2. Dementia Alzheimer's Disease continue home medicines. Head CT with 0.8 cm hyperdense extra-axial mass in the anterior right pre- pontine cistern; possible meningioma or aneurysm. d/w the daughter at the bedside- requested no further diagnostic measures at this time. she says that she'll see her neurologist as outpatient. 3. Hypertension continue Home medicines 4. Hypothyroidism to continue Hormonal replacement 5. Hyperlipidemia to continue Statins 6. CAD status post PCI and stent placement - continue plavix, BB and statin- cardiac enzymes negative. 7. Anxiety disorder continue home medicines. 8.lung mass- no further work-up as inpatient per the daughter's request. DVT prophylaxis with heparin DNR status per my discussion with the daughter. consulted PT. Discharge Planning SNF was offered but the daughter wants to take her home with C. will consult case management for [facility]. Gama Crowley MD November 13, 2016 07:42
[2016-11-13] MEDS ORDERED: CALCIUM CARBONATE VITAMIN D PO SCH (09:00)
[2016-11-13] MEDS: SODIUM CHLORIDE 0.9% FLUSH 10 ML FLUSH IV FLUSH SCH ×2 (09:00→21:00)
[2016-11-13] MEDS: METOPROLOL TARTRATE 25 MG TAB PO SCH ×2 (09:00→23:51)
[2016-11-13] MEDS: PANTOPRAZOLE SOD 40 MG DELAYED RELEASE TAB PO SCH (10:20)
[2016-11-13] MEDS: ATORVASTATIN 40 MG TAB PO SCH (10:20)
[2016-11-13] MEDS: MEMANTINE HCL 10 MG TAB PO SCH ×2 (10:20→23:51)
[2016-11-13] MEDS: guaiFENesin E.R. 600 MG TAB PO SCH ×2 (10:21→23:51)
[2016-11-13] MEDS: SPIRONOLACTONE 25 MG TAB PO SCH (10:21)
[2016-11-13] MEDS: CLOPIDOGREL 75 MG TAB PO SCH (10:21)
[2016-11-13] MEDS: CALCIUM/VITAMIN D 250 MG/125 U TAB PO SCH (10:21)
[2016-11-13] MEDS: VANCOMYCIN INJ 1,400 MG in SODIUM CHLORID 0.9% 500 ML INJ 500 ML IV SCH (10:21)
[2016-11-13] MEDS: SODIUM CHLOR 0.9% 1000 ML INJ 1,000 ML IV SCH ×2 (10:22→16:52)
--- NOTE | 2016-11-13 15:13 | HHI.FF ---
Face to Face Verification Diagnosis: (1) Dementia Physical Therapy Order: Evaluate and Treat I have seen patient Lauren Rizvi on 11/13/16. My clinical findings support the need for the requested home health care services because: Ltd mobility - disease progression I certify that my clinical findings support that this patient is homebound because: Unsteady gait/balance Gama Crowley MD November 13, 2016 15:13
[2016-11-13] MEDS ORDERED: GADODIAMIDE PF 287 MG/ML 20 ML VIAL (for RAD MRI) IV ONE ×2 (15:19→16:02)
--- NOTE | 2016-11-13 16:39 | RADRPT ---
EXAM DATE/TIME: 11/13/2016 15:40 [place] COMPARISON: CT BRAIN W/O CONTRAST, November 12, 2016, 15:41. INDICATIONS : Dizziness. Confusion. CONTRAST: 16 cc Omniscan (gadodiamide) IV MEDICAL HISTORY : Dementia. Hypertension. Hypercholesterolemia. Incontinence. Hypothyroid,CAD. SURGICAL HISTORY : Coronary artery stent. Hysterectomy. Tonsillectomy. ENCOUNTER: Initial ACUITY: 2 day PAIN SCORE: 0/10 LOCATION: cranial TECHNIQUE: Multiplanar, multisequence MRI of the brain was performed both prior to and following the administrat ion of paramagnetic contrast. FINDINGS: There is an 8 x 9 x 10 mm smoothly marginated mass anterior to the right side of the alma. Mild heter ogeneous enhancement. Appears to be a flow-void. 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 No intracranial hemorrhage or hematoma. No other mass lesions are demonstrated. No mass effect or mid line shift. There is mild atrophy and mild chronic periventricular white matter change. 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 No acute complication dem onstrated.. Behzad Ascencio MD on November 13, 2016 at 16:33 Board Certified Radiologist. This report was verified electronically.
--- NOTE | 2016-11-13 16:54 | EKG ---
Date Performed: 11/12/2016 Time Performed: 13:08:02 PTAGE: 76 years EKG: Irregular narrow complex rhythm, most consistent with atrial fibrillation with controlled v entricular rate MARKED LEFT AXIS DEVIATION INTRAVENTRICULAR CONDUCTION DELAY Nonspecific ST-T wave ch anges Compared to previous tracing, the patient is now most likely in atrial fibrillation ABNORMAL EC G PREVIOUS TRACING : 11/12/2016 13.07 DOCTOR: Erna Nair Interpretating Date/Time 11/13/2016 16:50:57
[2016-11-13] MEDS: QUEtiapine FUMARATE 25 MG TAB PO SCH (23:51)
[2016-11-13] MEDS: DONEPEZIL HCL 5 MG TAB PO SCH (23:52)
[2016-11-13] MEDS: MIRTAZAPINE 15 MG TAB PO SCH (23:52)
[2016-11-14] VITALS (8 sets, daily range): BP systolic 120–154; BP diastolic 52–69; PULSE 61–86; RESP 16–18; TEMP 96.4–98.2; O2SAT 97–99
[2016-11-14] MEDS: RESP: ALBUTEROL 2.5 MG/IPRATROPIUM 0.5 MG NEB (SCH) NEB ×7 (00:25→21:00)
[2016-11-14] MEDS: AZTREONAM INJ 1,000 MG in SODIUM CHLORIDE 0.9% INJ 100 ML IV SCH ×2 (02:12→14:25)
[2016-11-14] MEDS: LEVOTHYROXINE SODIUM 75 MCG TAB PO SCH (05:34)
[2016-11-14] MEDS: metroNIDAZOLE 500 MG INJ 100 ML IV SCH ×3 (05:34→21:43)
[2016-11-14] MEDS: SODIUM CHLOR 0.9% 1000 ML INJ 1,000 ML IV SCH ×2 (05:34→08:29)
[2016-11-14] MEDS: DOCUSATE SODIUM 100 MG CAP PO SCH ×2 (05:34→18:20)
[2016-11-14] MEDS: HEPARIN SODIUM - SQ 10,000 UNITS/ML VIAL SQ SCH ×3 (05:35→21:43)
[2016-11-14] MEDS: VANCOMYCIN INJ 1,400 MG in SODIUM CHLORID 0.9% 500 ML INJ 500 ML IV SCH (08:30)
[2016-11-14] MEDS: SPIRONOLACTONE 25 MG TAB PO SCH (08:32)
[2016-11-14] MEDS: MEMANTINE HCL 10 MG TAB PO SCH ×2 (08:32→19:31)
[2016-11-14] MEDS: ATORVASTATIN 40 MG TAB PO SCH (08:32)
[2016-11-14] MEDS: CALCIUM/VITAMIN D 250 MG/125 U TAB PO SCH (08:32)
[2016-11-14] MEDS: CLOPIDOGREL 75 MG TAB PO SCH (08:32)
[2016-11-14] MEDS: PANTOPRAZOLE SOD 40 MG DELAYED RELEASE TAB PO SCH (08:32)
[2016-11-14] MEDS: METOPROLOL TARTRATE 25 MG TAB PO SCH ×2 (08:32→19:31)
[2016-11-14] MEDS: guaiFENesin E.R. 600 MG TAB PO SCH ×2 (08:33→19:31)
[2016-11-14] MEDS: SODIUM CHLORIDE 0.9% FLUSH 10 ML FLUSH IV FLUSH SCH ×2 (08:33→19:29)
--- NOTE | 2016-11-14 11:56 | HHI.PR ---
Subjective Remarks resting comfortably with no distress. no fever. denies pain. d/w the RN and no acute issues over night. Objective Vitals Vital Signs Date Time Temp Pulse Resp B/P Pulse Ox O2 Delivery O2 Flow Rate FiO2 11/14/16 08:12 98 Nasal Cannula 2.00 11/14/16 08:00 97.8 72 16 136/68 97 11/14/16 04:00 97.0 69 17 123/68 99 11/14/16 02:07 63 11/14/16 00:00 97.8 78 17 144/65 97 11/13/16 20:00 97.6 74 17 129/60 100 11/13/16 16:00 97.5 73 16 121/50 100 11/13/16 12:00 97.3 80 17 121/58 97 I/O 11/13/16 11/13/16 11/13/16 11/14/16 11/14/16 11/14/16 07:00 15:00 23:00 07:00 15:00 23:00 Intake Total 1021 ml 840 ml 240 ml 240 ml Output Total 500 ml 850 ml 350 ml 400 ml Balance 521 ml -10 ml -110 ml -160 ml Intake Oral 240 ml 840 ml 240 ml 240 ml IV Total 781 ml Output Urine Total 500 ml 850 ml 350 ml 400 ml # Bowel Movements 1 Result Diagram: 11/13/165 11/13/16 0115 Imaging Last Impressions Brain MRI 11/13/16 0000 Signed Impressions: Service Date/Time: Sunday, November 13, 2016 15:40 - 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 No acute complication demonstrated.. Behzad Ascencio MD Head CT 11/12/161304 Signed Impressions: Service Date/Time: Saturday, November 12, 2016 15:41 - CONCLUSION: 1. 0.8 cm hyperdense extra-axial mass in the anterior right pre-pontine cistern. An aneurysm or other mass such as a meningioma should be considered. Provided there is no contraindication, this should be further evaluated with a MRI examination. No acute mass effect is seen. 2. Atrophy. Behzad Valverde MD Chest X-Ray 11/12/16 Signed Impressions: Service Date/Time: Saturday, November 12, 2016 13:10 - CONCLUSION: Mild right mid lung perihilar opacity indicating atelectasis versus minimal consolidation. Nicolas Winslow MD Abdomen/Pelvis CT 11/12/16 1305 Signed Impressions: Service Date/Time: Saturday, November 12, 2016 15:48 - CONCLUSION: 1. The cause of the patient's abdominal pain is not seen. 2. Varices in the left upper quadrant. This could be related to portal hypertension. The spleen is not enlarged, however. 3. 1.7 cm mass seen at the posteromedial left lower chest. This is incompletely evaluated on the CT of the abdomen. A CT of the chest would be recommended. 4. Fatty infiltration of the pancreas. 5. Colonic diverticula. Behzad Valverde MD Objective Remarks GENERAL: This is a well-nourished, well-developed patient, in no apparent distress. CARDIOVASCULAR: Regular rate and regular rhythm without murmurs, gallops, or rubs. RESPIRATORY: Clear to auscultation. Breath sounds equal bilaterally. No wheezes , rales, or rhonchi. GASTROINTESTINAL: Abdomen soft, non-tender, nondistended. Normal, active bowel sounds MUSCULOSKELETAL: Extremities without clubbing, cyanosis, or edema. NEURO: demented Procedures none Medications and IVs Current Medications IV Flush 2 ml 2 ml UNSCH PRN IV FLUSH FLUSH AFTER USING IV ACCESS; Start at 13:15; Stop 11/12/16 at 17:49; Status DC Vancomycin HCl 1000 mg/Sodium Chloride 250 ml @ 250 mls/hr ONCE STAT IV Last administered on 11/12/16 14:32; Start 11/12/16 at 14:05; Stop 11/12/16 at 15:04 ; Status DC Aztreonam 2000 mg/ Sodium Chloride 100 ml @ 200 mls/hr ONCE STAT IV Last administered on 11/12/16 15:25; Start 11/12/16 at 14:05; Stop 11/12/16 at 14:34 ; Status DC Metronidazole 100 ml @ 100 mls/hr ONCE STAT IV Last administered on 14:12; Start 11/12/16 at 14:05; Stop 11/12/16 at 15:04; Status DC Sodium Chloride 1,000 ml @ 1,000 mls/hr Q1H ONCE IV Last administered on 14:12; Start 11/12/16 at 14:05; Stop 11/12/16 at 15:04; Status DC Sodium Chloride 1,000 ml @ 1,000 mls/hr Q1H ONCE IV Last administered on 14:17; Start 11/12/16 at 14:05; Stop 11/12/16 at 15:04; Status DC Sodium Chloride (NS 1000 ml Inj) 100 ml @ 1,000 mls/hr Q6M ONCE IV Last administered on 11/12/16 14:32; Start 11/12/16 at 14:05; Stop 11/12/16 at 14:18 ; Status DC Potassium Chloride 60 meq 60 meq ONCE ONCE PO ; Start 11/12/16 at 14:15; Stop 11/12/16 at 14:37; Status DC Potassium Chloride (KCl 10 Meq Premix Inj) 100 ml @ 100 mls/hr BOLUS ONCE IV Last administered on 11/12/16 15:06; Start 11/12/16 at 14:45; Stop 11/12/16 at 15:44; Status DC Iohexol 85 ml 85 ml STK-MED ONCE IV Last administered on 11/12/16 15:52; Start 11/12/16 at 15:52; Stop 11/12/16 at 15:53; Status DC Aztreonam 1000 mg/ Sodium Chloride 100 ml @ 200 mls/hr Q12H IV Last administered on 11/14/16 02:12; Start 11/13/16 at 02:00 Pharmacy Profile Note 0 ml @ 0 mls/hr UNSCH OTHER ; Start 11/12/16 at 17:15 Metronidazole (Flagyl 500 Mg Inj) 100 ml @ 100 mls/hr Q8H IV Last administered on 11/14/16 05:34; Start 11/12/16 at 22:00 Albuterol/ Ipratropium (Duoneb Neb) 1 ampule Q4HR NEB NEB Last administered on 11/14/16 08:12; Start 11/12/16 at 20:00 Guaifenesin 600 mg 600 mg BID PO Last administered on 11/14/16 08:33; Start at 21:00 Sodium Chloride (NS 1000 ml Inj) 1,000 ml @ 83 mls/hr Q12H3M IV Last administered on 11/14/16 08:29; Start 11/12/16 at 18:00 Sodium Chloride (NS Flush) 2 ml UNSCH PRN IV FLUSH FLUSH AFTER USING IV ACCESS ; Start 11/12/16 at 17:15 Sodium Chloride (NS Flush) 2 ml BID IV FLUSH ; Start 11/12/16 at 21:00 Acetaminophen (Tylenol) 650 mg Q4H PRN PO TEMP > 100.4; Start 11/12/16 at 17:15 Ondansetron HCl (Zofran Inj) 4 mg Q6H PRN IVP NAUSEA OR VOMITING; Start at 17:15 Bisacodyl (Dulcolax Supp) 10 mg DAILY PRN RECTAL CONSTIPATION; Start 11/12/16 at 17:15 Docusate Sodium (Colace) 100 mg Q12H PO Last administered on 11/14/16 05:34; Start 11/12/16 at 18:00 Heparin Sodium (Porcine) (Heparin Inj) 5,000 units Q12H SQ ; Start 11/12/16 at 17:15; Stop 11/12/16 at 17:20; Status DC Naloxone HCl (Narcan Inj) 0.4 mg UNSCH PRN IV SEE LABEL COMMENTS; Start at 17:15 Atorvastatin Calcium (Lipitor) 40 mg DAILY PO Last administered on 11/14/16 08 :32; Start 11/13/16 at 09:00 Clopidogrel Bisulfate (Plavix) 75 mg DAILY PO Last administered on 11/14/16 08 :32; Start 11/13/16 at 09:00 Donepezil HCl (Aricept) 10 mg HS PO Last administered on 11/13/16 23:52; Start 11/12/16 at 21:00 Levothyroxine Sodium (Synthroid) 75 mcg DAILY@06 PO Last administered on 05:34; Start 11/13/16 at 06:00 Memantine (Namenda) 10 mg BID PO Last administered on 11/14/16 08:32; Start at 21:00 Metoprolol Tartrate (Lopressor) 25 mg BID PO Last administered on 11/14/16 08: 32; Start 11/12/16 at 21:00 Mirtazapine (Remeron) 15 mg HS PO Last administered on 11/13/16 23:52; Start 11/12/16 at 21:00 Pantoprazole Sodium (Protonix) 40 mg DAILY PO Last administered on 11/14/16 08 :32; Start 11/13/16 at 09:00 Spironolactone (Aldactone) 25 mg DAILY PO Last administered on 11/14/16 08:32 ; Start 11/13/16 at 09:00 Non-Formulary Medication 1 tab DAILY PO CA; Start 11/13/16 at 09:00; Status UNV Non-Formulary Medication 50 mg HS PO ; Start 11/12/16 at 21:00; Status UNV Heparin Sodium (Porcine) (Heparin Inj) 5,000 units Q8HR SQ Last administered on 11/14/16 05:35; Start 11/12/16 at 22:00 Quetiapine Fumarate (SEROquel) 50 mg HS PO Last administered on 11/13/16 23:51 ; Start 11/12/16 at 21:00 Calcium/Vitamin D 500 mg 500 mg DAILY PO Last administered on 11/14/16 08:32; Start 11/13/16 at 09:00 Vancomycin HCl/ Sodium Chloride (Vancomycin Inj/ NS 500 ml Inj) 514 ml @ 250 mls/hr Q24H IV Last administered on 11/14/16 08:30; Start 11/13/16 at 08:00 Miscellaneous Information SPECIFIC LAB TO BE DRAWN:[facility] TROUGH DATE TO BE DRDamon.. ONCE ONCE .XX ; Start 11/15/16 at 07:45; Stop 11/15/16 at 07:46 Gadodiamide (Omniscan Pf Inj) 20 ml STK-MED ONCE IV Last administered on 15:19; Start 11/13/16 at 15:19; Stop 11/13/16 at 15:20; Status DC Gadodiamide (Omniscan Pf Inj) 16 ml STK-MED ONCE IV ; Start 11/13/16 at 16:02; Stop 11/13/16 at 16:03; Status Cancel A/P Assessment and Plan A/P 1. Acute on chronic Metabolic encephalopathy secondary to Dementia- now seems at her baseline. CXR positive for probable Pneumonia, given IV fluids, was started on Vancomycin, Azactam and Flagyl in ER will deescalate the antibiotics soon if the cultures remain negative. 2. Dementia Alzheimer's Disease continue home medicines. Head CT with 0.8 cm hyperdense extra-axial mass in the anterior right pre- pontine cistern; possible meningioma or aneurysm. 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 It is probably partly thrombosed with No acute complication demonstrated. d/w the daughter at the bedside- requested no further diagnostic/therapeutic measures . she says that she'll see her neurologist as outpatient. 3. Hypertension continue Home medicines 4. Hypothyroidism to continue Hormonal replacement 5. Hyperlipidemia to continue Statins 6. CAD status post PCI and stent placement - continue plavix, BB and statin- cardiac enzymes negative. 7. Anxiety disorder continue home medicines. 8.lung mass- no further work-up as inpatient per the daughter's request. DVT prophylaxis with heparin DNR status per my discussion with the daughter. consulted PT. Discharge Planning SNF was offered but the daughter wants to take her home with [facility]. dc home with [facility] tomorrow if stable. Gama Crowley MD November 14, 2016 11:56 Gama Crowley MD November 14, 2016 11:56
[2016-11-14] MEDS ORDERED: LEVA500T PO (12:07)
--- NOTE | 2016-11-14 12:07 | HHI.DCPOC ---
Discharge Care Plan Diagnosis: (1) Altered mental status Your Health Problems Are: Difficulty with ADL Goals to Promote Your Health * To prevent worsening of your condition and complications * To maintain your health at the optimal level Directions to Meet Your Goals Take your medications as prescribed Follow your dietary instruction Follow activity as directed Keep your appointments as scheduled Take your immunizations and boosters as scheduled If your symptoms worsen call your PCP, if no PCP go to Urgent Care Center or Emergency Room Smoking is Dangerous to Your Health. Avoid second hand smoke Call the 24-hour hour crisis hotline for domestic abuse at Gama Crowley MD November 14, 2016 12:07
--- NOTE | 2016-11-14 12:10 | HHI.DS ---
Discharge Summary Admission Date November 12, 2016 at 16:57 Discharge Date: November 14, 2016 Admitting Diagnosis sepsis, pneumonia, AMS (1) Altered mental status ICD Code: R41.82 Diagnosis: Principal Procedures none Brief History - From Admission This is a 76-year-old female with history of dementia, hypertension, anxiety, hypothyroidism, hyperlipidemia, coronary artery disease who presents via EMS for evaluation of lethargy. History is primarily obtained by paramedics. The patient lives with her daughter. Over the past week she has had a cough and low-grade fever. She woke up this morning more lethargic than usual which prompted evaluation. When asked the patient has pain she points at the middle of her abdomen. discussed with her Daughter Mrs. Elisa Garcia who say she started having dizziness, altered mental status with hallucinations pale. CBC/BMP: 11/13/16 0115 11/13/16 0115 Significant Findings Laboratory Tests Test 11/12/16 11/12/16 11/12/16 11/12/16 13:05 13:59 16:50 20:14 Red Blood Count 3.56 MIL/MM3 (4.00-5.30) Hemoglobin 11.3 GM/DL (11.6-15.3) Hematocrit 33.5 % (35.0-46.0) Platelet Count 128 TH/MM3 (150-450) Lymphocytes (%) (Auto) 53.3 % (9.0-44.0) Platelet Estimate LOW (NORMAL) Ovalocytes 1+ (NORMAL) Potassium Level 3.3 MEQ/L (3.5-5.1) Carbon Dioxide Level 20.7 MEQ/L (21.0-32.0) Estimat Glomerular Filtration 55 ML/MIN (>89) Rate Random Glucose 119 MG/DL (74-106) Lactic Acid Level 3.7 mmol/L 3.8 mmol/L (0.4-2.0) (0.4-2.0) Troponin I LESS THAN 0.02 LESS THAN 0.02 NG/ML NG/ML (0.02-0.05) (0.02-0.05) Total Protein 6.2 GM/DL (6.4-8.2) Albumin 3.2 GM/DL (3.4-5.0) Lipase 68 U/L (73-393) Urine Bacteria RARE /hpf (NONE) Urine Mucus FEW /lpf (OCC) Test 11/13/16 11/13/16 01:15 12:37 Red Blood Count 3.04 MIL/MM3 (4.00-5.30) Hemoglobin 9.9 GM/DL (11.6-15.3) Hematocrit 28.7 % (35.0-46.0) Platelet Count 100 TH/MM3 (150-450) Neutrophils (%) (Auto) 70.1 % (16.0-70.0) Sodium Level 146 MEQ/L (136-145) Chloride Level 112 MEQ/L (98-107) Estimat Glomerular Filtration 76 ML/MIN (>89) Rate Random Glucose 111 MG/DL (74-106) Calcium Level 7.8 MG/DL (8.5-10.1) Troponin I LESS THAN 0.02 NG/ML (0.02-0.05) Lactic Acid Level 3.5 mmol/L (0.4-2.0) Imaging Last Impressions Brain MRI 11/13/16 0000 Signed Impressions: Service Date/Time: Sunday, November 13, 2016 15:40 - 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 No acute complication demonstrated.. Behzad Ascencio MD Head CT 11/12/16 3337 Signed Impressions: Service Date/Time: Saturday, November 12, 2016 15:41 - CONCLUSION: 1. 0.8 cm hyperdense extra-axial mass in the anterior right pre-pontine cistern. An aneurysm or other mass such as a meningioma should be considered. Provided there is no contraindication, this should be further evaluated with a MRI examination. No acute mass effect is seen. 2. Atrophy. Behzad Valverde MD Chest X-Ray 11/12/16 5597 Signed Impressions: Service Date/Time: Saturday, November 12, 2016 13:10 - CONCLUSION: Mild right mid lung perihilar opacity indicating atelectasis versus minimal consolidation. Nicolas Winslow MD Abdomen/Pelvis CT 11/12/16 2343 Signed Impressions: Service Date/Time: Saturday, November 12, 2016 15:48 - CONCLUSION: 1. The cause of the patient's abdominal pain is not seen. 2. Varices in the left upper quadrant. This could be related to portal hypertension. The spleen is not enlarged, however. 3. 1.7 cm mass seen at the posteromedial left lower chest. This is incompletely evaluated on the CT of the abdomen. A CT of the chest would be recommended. 4. Fatty infiltration of the pancreas. 5. Colonic diverticula. Behzad Valverde MD PE at Discharge GENERAL: This is a well-nourished, well-developed patient, in no apparent distress. CARDIOVASCULAR: Regular rate and regular rhythm without murmurs, gallops, or rubs. RESPIRATORY: Clear to auscultation. Breath sounds equal bilaterally. No wheezes , rales, or rhonchi. GASTROINTESTINAL: Abdomen soft, non-tender, nondistended. Normal, active bowel sounds MUSCULOSKELETAL: Extremities without clubbing, cyanosis, or edema. NEURO: demented Hospital Course 1. Acute on chronic Metabolic encephalopathy secondary to Dementia- now seems at her baseline. CXR positive for probable Pneumonia, given IV fluids, was started on Vancomycin, Azactam and Flagyl in ER will deescalate the antibiotics ; switch to po levaquin upon discharge. 2. Dementia Alzheimer's Disease continue home medicines. Head CT with 0.8 cm hyperdense extra-axial mass in the anterior right pre- pontine cistern; possible meningioma or aneurysm. 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 It is probably partly thrombosed with No acute complication demonstrated. d/w the daughter at the bedside- requested no further diagnostic/therapeutic measures . she says that she'll see her neurologist as outpatient. 3. Hypertension continue Home medicines 4. Hypothyroidism to continue Hormonal replacement 5. Hyperlipidemia to continue Statins 6. CAD status post PCI and stent placement - continue plavix, BB and statin- cardiac enzymes negative. 7. Anxiety disorder continue home medicines. 8.lung mass- no further work-up as inpatient per the daughter's request. Pt Condition on Discharge: Fair Discharge Disposition: Disch w/ Home Health Serv Discharge Time: > 30 minutes Discharge Instructions DIET: Follow Instructions for: Heart Healthy Diet Activities you can perform: Regular-No Restrictions Follow up Referrals: PCP Follow-up New Medications: Levofloxacin (Levaquin) 500 Mg Tab 500 MG PO DAILY Infection Days 7 Ref 0 TAB Continued Medications: Albuterol 6.7 GM Inh (Proventil Hfa 6.7 GM Inh) 90 Mcg/Act Aer 2 PUFF INH Q6H PRN SHORTNESS OF BREATH #1 Ref 0 INHALER Atorvastatin (Atorvastatin) 40 Mg Tab 40 MG PO DAILY Cholesterol Management #30 Ref 0 TAB Calcium Carbonate-Vitamin D (Oscal 500/200 D-3) 500-200 Mg-Unit Tab 1 TAB PO DAILY Calcium Supplement Ref 0 TAB Clopidogrel (Plavix) 75 Mg Tab 75 MG PO DAILY Blood Clot Prevention #30 Ref 0 TAB Donepezil (Donepezil) 10 Mg Tab 10 MG PO HS Dementia #30 Ref 0 TAB Levothyroxine (Synthroid) 75 Mcg Tab 75 MCG PO DAILY Thyroid #30 Ref 0 TAB Memantine (Namenda) 10 Mg Tab 10 MG PO BID Alzheimer Disease #30 Ref 0 TAB Metoprolol Tartrate (Metoprolol Tartrate) 25 Mg Tab 25 MG PO BID #60 Ref 0 TAB Mirtazapine (Mirtazapine) 15 Mg Tab 15 MG PO HS Depression Control #30 Ref 0 TAB Pantoprazole (Pantoprazole) 40 Mg Tab 40 MG PO DAILY Reflux #30 Ref 0 TAB Quetiapine (Seroquel) 50 Mg Tab 50 MG PO HS #30 Ref 0 TAB Spironolactone (Aldactone) 25 Mg Tab 25 MG PO DAILY #30 Ref 0 TAB Gama Crowley MD November 14, 2016 12:10
[2016-11-14] MEDS: DONEPEZIL HCL 5 MG TAB PO SCH (19:30)
[2016-11-14] MEDS: MIRTAZAPINE 15 MG TAB PO SCH (19:31)
[2016-11-14] MEDS: QUEtiapine FUMARATE 25 MG TAB PO SCH (19:31)
[2016-11-15] VITALS (10 sets, daily range): BP systolic 123–147; BP diastolic 58–72; PULSE 67–79; RESP 17–18; TEMP 96.4–98.9; O2SAT 94–98
[2016-11-15] MEDS: AZTREONAM INJ 1,000 MG in SODIUM CHLORIDE 0.9% INJ 100 ML IV SCH ×2 (03:01→12:55)
[2016-11-15] MEDS: RESP: ALBUTEROL 2.5 MG/IPRATROPIUM 0.5 MG NEB (SCH) NEB ×7 (04:00→23:51)
[2016-11-15] MEDS: DOCUSATE SODIUM 100 MG CAP PO SCH ×2 (04:47→17:17)
[2016-11-15] MEDS: HEPARIN SODIUM - SQ 10,000 UNITS/ML VIAL SQ SCH ×3 (04:47→21:32)
[2016-11-15] MEDS: SODIUM CHLOR 0.9% 1000 ML INJ 1,000 ML IV SCH ×2 (04:48→17:17)
[2016-11-15] MEDS: LEVOTHYROXINE SODIUM 75 MCG TAB PO SCH (04:48)
[2016-11-15] MEDS: metroNIDAZOLE 500 MG INJ 100 ML IV SCH (04:48)
[2016-11-15] MEDS ORDERED: PHARMACY ORDERED LAB ONE (07:45)
[2016-11-15] MEDS: VANCOMYCIN INJ 1,400 MG in SODIUM CHLORID 0.9% 500 ML INJ 500 ML IV SCH (08:37)
[2016-11-15] MEDS: guaiFENesin E.R. 600 MG TAB PO SCH ×2 (08:43→19:24)
[2016-11-15] MEDS: MEMANTINE HCL 10 MG TAB PO SCH ×2 (08:43→19:25)
[2016-11-15] MEDS: ATORVASTATIN 40 MG TAB PO SCH (08:44)
[2016-11-15] MEDS: METOPROLOL TARTRATE 25 MG TAB PO SCH ×2 (08:44→19:24)
[2016-11-15] MEDS: CLOPIDOGREL 75 MG TAB PO SCH (08:44)
[2016-11-15] MEDS: CALCIUM/VITAMIN D 250 MG/125 U TAB PO SCH (08:44)
[2016-11-15] MEDS: SODIUM CHLORIDE 0.9% FLUSH 10 ML FLUSH IV FLUSH SCH ×2 (08:44→19:25)
[2016-11-15] MEDS: SPIRONOLACTONE 25 MG TAB PO SCH (08:44)
[2016-11-15] MEDS: PANTOPRAZOLE SOD 40 MG DELAYED RELEASE TAB PO SCH (08:44)
--- NOTE | 2016-11-15 12:41 | HHI.PR ---
Subjective Remarks in no distress. afebrile. more alert today. d/w the RN and no acute issues over night. Objective Vitals Vital Signs Date Time Temp Pulse Resp B/P Pulse Ox O2 Delivery O2 Flow Rate FiO2 11/15/16 12:00 97.5 67 17 123/72 98 11/15/16 08:00 98.2 73 18 127/58 96 11/15/16 04:00 98.9 70 18 135/61 97 11/15/16 02:59 95 Nasal Cannula 2.00 11/15/16 00:00 96.4 75 18 147/64 95 11/14/16 20:00 86 11/14/16 20:00 96.4 83 18 154/69 97 11/14/16 16:00 98.2 73 16 126/52 98 I/O 11/14/16 11/14/16 11/14/16 11/15/16 11/15/16 11/15/16 07:00 15:00 23:00 07:00 15:00 23:00 Intake Total 240 ml 600 ml 754 ml 1085 ml Output Total 400 ml 1275 ml Balance -160 ml -675 ml 754 ml 1085 ml Intake Oral 240 ml 600 ml 280 ml 280 ml IV Total 474 ml 805 ml Output Urine Total 400 ml 1275 ml # Voids 3 4 Result Diagram: 11/13/16 0115 11/15/16 0533 Imaging Last Impressions Brain MRI 11/13/16 0000 Signed Impressions: Service Date/Time: Sunday, November 13, 2016 15:40 - 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 No acute complication demonstrated.. Behzad Ascencio MD Head CT 11/12/16 9321 Signed Impressions: Service Date/Time: Saturday, November 12, 2016 15:41 - CONCLUSION: 1. 0.8 cm hyperdense extra-axial mass in the anterior right pre-pontine cistern. An aneurysm or other mass such as a meningioma should be considered. Provided there is no contraindication, this should be further evaluated with a MRI examination. No acute mass effect is seen. 2. Atrophy. Behzad Valverde MD Chest X-Ray 11/12/16 1305 Signed Impressions: Service Date/Time: Saturday, November 12, 2016 13:10 - CONCLUSION: Mild right mid lung perihilar opacity indicating atelectasis versus minimal consolidation. Nicolas Winslow MD Abdomen/Pelvis CT 11/12/16 1305 Signed Impressions: Service Date/Time: Saturday, November 12, 2016 15:48 - CONCLUSION: 1. The cause of the patient's abdominal pain is not seen. 2. Varices in the left upper quadrant. This could be related to portal hypertension. The spleen is not enlarged, however. 3. 1.7 cm mass seen at the posteromedial left lower chest. This is incompletely evaluated on the CT of the abdomen. A CT of the chest would be recommended. 4. Fatty infiltration of the pancreas. 5. Colonic diverticula. Behzad Valverde MD Objective Remarks GENERAL: This is a well-nourished, well-developed patient, in no apparent distress. CARDIOVASCULAR: Regular rate and regular rhythm without murmurs, gallops, or rubs. RESPIRATORY: Clear to auscultation. Breath sounds equal bilaterally. No wheezes , rales, or rhonchi. GASTROINTESTINAL: Abdomen soft, non-tender, nondistended. Normal, active bowel sounds MUSCULOSKELETAL: Extremities without clubbing, cyanosis, or edema. NEURO: demented Procedures none Medications and IVs Current Medications IV Flush 2 ml 2 ml UNSCH PRN IV FLUSH FLUSH AFTER USING IV ACCESS; Start at 13:15; Stop 11/12/16 at 17:49; Status DC Vancomycin HCl 1000 mg/Sodium Chloride 250 ml @ 250 mls/hr ONCE STAT IV Last administered on 11/12/16 14:32; Start 11/12/16 at 14:05; Stop 11/12/16 at 15:04 ; Status DC Aztreonam 2000 mg/ Sodium Chloride 100 ml @ 200 mls/hr ONCE STAT IV Last administered on 11/12/16 15:25; Start 11/12/16 at 14:05; Stop 11/12/16 at 14:34 ; Status DC Metronidazole 100 ml @ 100 mls/hr ONCE STAT IV Last administered on 14:12; Start 11/12/16 at 14:05; Stop 11/12/16 at 15:04; Status DC Sodium Chloride 1,000 ml @ 1,000 mls/hr Q1H ONCE IV Last administered on 14:12; Start 11/12/16 at 14:05; Stop 11/12/16 at 15:04; Status DC Sodium Chloride 1,000 ml @ 1,000 mls/hr Q1H ONCE IV Last administered on 14:17; Start 11/12/16 at 14:05; Stop 11/12/16 at 15:04; Status DC Sodium Chloride (NS 1000 ml Inj) 100 ml @ 1,000 mls/hr Q6M ONCE IV Last administered on 11/12/16 14:32; Start 11/12/16 at 14:05; Stop 11/12/16 at 14:18 ; Status DC Potassium Chloride 60 meq 60 meq ONCE ONCE PO ; Start 11/12/16 at 14:15; Stop 11/12/16 at 14:37; Status DC Potassium Chloride (KCl 10 Meq Premix Inj) 100 ml @ 100 mls/hr BOLUS ONCE IV Last administered on 11/12/16 15:06; Start 11/12/16 at 14:45; Stop 11/12/16 at 15:44; Status DC Iohexol 85 ml 85 ml STK-MED ONCE IV Last administered on 11/12/16 15:52; Start 11/12/16 at 15:52; Stop 11/12/16 at 15:53; Status DC Aztreonam 1000 mg/ Sodium Chloride 100 ml @ 200 mls/hr Q12H IV Last administered on 11/15/16 03:01; Start 11/13/16 at 02:00 Pharmacy Profile Note 0 ml @ 0 mls/hr UNSCH OTHER ; Start 11/12/16 at 17:15 Metronidazole (Flagyl 500 Mg Inj) 100 ml @ 100 mls/hr Q8H IV Last administered on 11/15/16 04:48; Start 11/12/16 at 22:00 Albuterol/ Ipratropium (Duoneb Neb) 1 ampule Q4HR NEB NEB Last administered on 11/15/16 09:29; Start 11/12/16 at 20:00 Guaifenesin 600 mg 600 mg BID PO Last administered on 11/15/16 08:43; Start at 21:00 Sodium Chloride (NS 1000 ml Inj) 1,000 ml @ 83 mls/hr Q12H3M IV Last administered on 11/15/16 04:48; Start 11/12/16 at 18:00 Sodium Chloride (NS Flush) 2 ml UNSCH PRN IV FLUSH FLUSH AFTER USING IV ACCESS ; Start 11/12/16 at 17:15 Sodium Chloride (NS Flush) 2 ml BID IV FLUSH ; Start 11/12/16 at 21:00 Acetaminophen (Tylenol) 650 mg Q4H PRN PO TEMP > 100.4; Start 11/12/16 at 17:15 Ondansetron HCl (Zofran Inj) 4 mg Q6H PRN IVP NAUSEA OR VOMITING; Start at 17:15 Bisacodyl (Dulcolax Supp) 10 mg DAILY PRN RECTAL CONSTIPATION; Start 11/12/16 at 17:15 Docusate Sodium (Colace) 100 mg Q12H PO Last administered on 11/15/16 04:47; Start 11/12/16 at 18:00 Heparin Sodium (Porcine) (Heparin Inj) 5,000 units Q12H SQ ; Start 11/12/16 at 17:15; Stop 11/12/16 at 17:20; Status DC Naloxone HCl (Narcan Inj) 0.4 mg UNSCH PRN IV SEE LABEL COMMENTS; Start at 17:15 Atorvastatin Calcium (Lipitor) 40 mg DAILY PO Last administered on 11/15/16 08 :44; Start 11/13/16 at 09:00 Clopidogrel Bisulfate (Plavix) 75 mg DAILY PO Last administered on 11/15/16 08 :44; Start 11/13/16 at 09:00 Donepezil HCl (Aricept) 10 mg HS PO Last administered on 11/14/16 19:30; Start 11/12/16 at 21:00 Levothyroxine Sodium (Synthroid) 75 mcg DAILY@06 PO Last administered on 04:48; Start 11/13/16 at 06:00 Memantine (Namenda) 10 mg BID PO Last administered on 11/15/16 08:43; Start at 21:00 Metoprolol Tartrate (Lopressor) 25 mg BID PO Last administered on 11/15/16 08: 44; Start 11/12/16 at 21:00 Mirtazapine (Remeron) 15 mg HS PO Last administered on 11/14/16 19:31; Start 11/12/16 at 21:00 Pantoprazole Sodium (Protonix) 40 mg DAILY PO Last administered on 11/15/16 08 :44; Start 11/13/16 at 09:00 Spironolactone (Aldactone) 25 mg DAILY PO Last administered on 11/15/16 08:44 ; Start 11/13/16 at 09:00 Non-Formulary Medication 1 tab DAILY PO CA; Start 11/13/16 at 09:00; Status UNV Non-Formulary Medication 50 mg HS PO ; Start 11/12/16 at 21:00; Status UNV Heparin Sodium (Porcine) (Heparin Inj) 5,000 units Q8HR SQ Last administered on 11/15/16 04:47; Start 11/12/16 at 22:00 Quetiapine Fumarate (SEROquel) 50 mg HS PO Last administered on 11/14/16 19:31 ; Start 11/12/16 at 21:00 Calcium/Vitamin D 500 mg 500 mg DAILY PO Last administered on 11/15/16 08:44; Start 11/13/16 at 09:00 Vancomycin HCl/ Sodium Chloride (Vancomycin Inj/ NS 500 ml Inj) 514 ml @ 250 mls/hr Q24H IV Last administered on 11/15/16 08:37; Start 11/13/16 at 08:00; Stop 11/15/16 at 09:04; Status DC Miscellaneous Information SPECIFIC LAB TO BE DRAWN:VANCO TROUGH DATE TO BE DR... ONCE ONCE .XX Last administered on 11/15/16 07:45; Start 11/15/16 at 07 :45; Stop 11/15/16 at 07:46; Status DC Gadodiamide (Omniscan Pf Inj) 20 ml STK-MED ONCE IV Last administered on 15:19; Start 11/13/16 at 15:19; Stop 11/13/16 at 15:20; Status DC Gadodiamide 16 ml 16 ml STK-MED ONCE IV ; Start 11/13/16 at 16:02; Stop at 16:03; Status Cancel Vancomycin HCl/ Sodium Chloride (Vancomycin Inj/ NS 250 ml Inj) 262.5 ml @ 250 mls/hr Q18H IV ; Start 11/16/16 at 02:00 Miscellaneous Information SPECIFIC LAB TO BE DRAWN:VANCOMYCIN TROUGH DATE TO... ONCE ONCE .XX ; Start 11/18/16 at 07:45; Stop 11/18/16 at 07:46 A/P Assessment and Plan A/P 1. Acute on chronic Metabolic encephalopathy secondary to Dementia- now seems at her baseline. CXR positive for probable Pneumonia, given IV fluids, was started on Vancomycin,- will dc Azactam and flagyl- will start levaquin one of the bottles of the blood cultures with staph- gram negative- suspect contamination- d/w the microbiology; BC will be finalized tomorrow. 2. Dementia Alzheimer's Disease continue home medicines. Head CT with 0.8 cm hyperdense extra-axial mass in the anterior right pre- pontine cistern; possible meningioma or aneurysm. 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 It is probably partly thrombosed with No acute complication demonstrated. previously d/w the daughter requested no further diagnostic/therapeutic measures . she says that she'll see her neurologist as outpatient. 3. Hypertension continue Home medicines 4. Hypothyroidism to continue Hormonal replacement 5. Hyperlipidemia to continue Statins 6. CAD status post PCI and stent placement - continue plavix, BB and statin- cardiac enzymes negative. 7. Anxiety disorder continue home medicines. 8.lung mass- no further work-up as inpatient per the daughter's request. DVT prophylaxis with heparin DNR status per my discussion with the daughter. consulted PT. Discharge Planning SNF was offered but the daughter wants to take her home with [facility]. dc home with [facility] likely tomorrow if stable. Gama Crowley MD November 15, 2016 12:41
[2016-11-15] MEDS: LEVOFLOXACIN 500 MG TAB PO SCH (13:56)
[2016-11-15] MEDS: QUEtiapine FUMARATE 25 MG TAB PO SCH (19:25)
[2016-11-15] MEDS: DONEPEZIL HCL 5 MG TAB PO SCH (19:25)
[2016-11-15] MEDS: MIRTAZAPINE 15 MG TAB PO SCH (19:25)
[2016-11-16] VITALS (20 sets, daily range): BP systolic 99–154; BP diastolic 52–85; PULSE 74–149; RESP 18–34; TEMP 97.8–98.6; O2SAT 91–99
[2016-11-16 00:25] LABS: BICARBONATE 22.4 MEQ/L (21.0-32.0); MAGNESIUM 1.7 MG/DL (1.5-2.5); POTASSIUM 3.3 MEQ/L (3.5-5.1)
[2016-11-16] MEDS ORDERED: MAGNESIUM SULFATE 1 GM PREMIX 100 ML IV ONE (00:45)
[2016-11-16] MEDS ORDERED: DILTIAZEM INJ 125 MG in SODIUM CHLORIDE 0.9% INJ 100 ML IV SCH (00:45)
[2016-11-16] MEDS ORDERED: POTASSIUM CHLORIDE 10 MEQ CONTROLLED RELEASE TAB PO ONE (01:00)
[2016-11-16] MEDS: VANCOMYCIN INJ 1,250 MG in SODIUM CHLOR 0.9% 250 ML INJ 250 ML IV SCH ×2 (02:11→21:51)
[2016-11-16] MEDS ORDERED: CHLORHEXIDINE GLUCONATE 2 % 1 PACK (2 CLOTHS)(extra cloths) TOPICAL PRN (02:15)
[2016-11-16] MEDS: RESP: ALBUTEROL 2.5 MG/IPRATROPIUM 0.5 MG NEB (SCH) NEB ×5 (04:00→19:24)
[2016-11-16] MEDS: CHLORHEXIDINE GLUCONATE 2 % 1 PACK (2 CLOTHS)(taper/protocol) TOPICAL SCH (04:00)
[2016-11-16] MEDS: HEPARIN SODIUM - SQ 10,000 UNITS/ML VIAL SQ SCH ×2 (05:07→13:01)
[2016-11-16] MEDS: LEVOTHYROXINE SODIUM 75 MCG TAB PO SCH (05:07)
[2016-11-16] MEDS: DOCUSATE SODIUM 100 MG CAP PO SCH ×2 (05:07→17:58)
--- NOTE | 2016-11-16 08:17 | HHI.PR ---
Subjective Remarks transferred to [facility] for atrial fibrillation with rapid ventricular rate . currently in no acute distress. no sob or chest pain. still on cardizem drip. HR still elevated. d/w the RN. Objective Vitals Vital Signs Date Time Temp Pulse Resp B/P Pulse Ox O2 Delivery O2 Flow Rate FiO2 11/16/16 07:21 97 Nasal Cannula 2.00 11/16/16 04:00 98.1 113 23 123/63 96 11/16/16 02:45 117 31 154/79 98 11/16/16 02:30 121 25 138/85 91 11/16/16 02:25 97.9 125 20 138/73 93 11/16/16 02:15 127 23 138/73 93 11/16/16 02:00 97.8 149 34 138/73 93 11/16/16 02:00 93 Nasal Cannula 4.00 11/16/16 00:00 97.8 74 18 153/67 97 11/15/16 20:39 79 11/15/16 20:31 94 21 11/15/16 20:00 98.5 79 18 144/67 97 11/15/16 16:50 98 21 11/15/16 16:00 98.5 78 18 139/61 96 11/15/16 12:00 97.5 67 17 123/72 98 I/O 11/15/16 11/15/16 11/15/16 11/16/16 11/16/16 11/16/16 07:00 15:00 23:00 07:00 15:00 23:00 Intake Total 1085 ml 1021 ml 828 ml 630 ml Output Total 250 ml 525 ml Balance 1085 ml 771 ml 303 ml 630 ml Intake Oral 280 ml 360 ml 480 ml 240 ml IV Total 805 ml 661 ml 348 ml 390 ml Output Urine Total 250 ml 525 ml # Voids 4 2 1 # Bowel Movements 1 Result Diagram: 11/13/16 0115 11/15/16 2350 Imaging Last Impressions Brain MRI 11/13/16 0000 Signed Impressions: Service Date/Time: Sunday, November 13, 2016 15:40 - 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 No acute complication demonstrated.. Behzad Ascencio MD Head CT 11/12/16 6119 Signed Impressions: Service Date/Time: Saturday, November 12, 2016 15:41 - CONCLUSION: 1. 0.8 cm hyperdense extra-axial mass in the anterior right pre-pontine cistern. An aneurysm or other mass such as a meningioma should be considered. Provided there is no contraindication, this should be further evaluated with a MRI examination. No acute mass effect is seen. 2. Atrophy. Behzad Valverde MD Chest X-Ray 11/12/16 0820 Signed Impressions: Service Date/Time: Saturday, November 12, 2016 13:10 - CONCLUSION: Mild right mid lung perihilar opacity indicating atelectasis versus minimal consolidation. Nicolas Winslow MD Abdomen/Pelvis CT 11/12/16 4955 Signed Impressions: Service Date/Time: Saturday, November 12, 2016 15:48 - CONCLUSION: 1. The cause of the patient's abdominal pain is not seen. 2. Varices in the left upper quadrant. This could be related to portal hypertension. The spleen is not enlarged, however. 3. 1.7 cm mass seen at the posteromedial left lower chest. This is incompletely evaluated on the CT of the abdomen. A CT of the chest would be recommended. 4. Fatty infiltration of the pancreas. 5. Colonic diverticula. Behzad Valverde MD Objective Remarks GENERAL: in no apparent distress. CARDIOVASCULAR: irregular and tachycardic RESPIRATORY: Clear to auscultation. Breath sounds equal bilaterally. No wheezes , rales, or rhonchi. GASTROINTESTINAL: Abdomen soft, non-tender, nondistended. Normal, active bowel sounds MUSCULOSKELETAL: Extremities without clubbing, cyanosis, or edema. NEURO: demented Procedures none Medications and IVs Current Medications IV Flush 2 ml 2 ml UNSCH PRN IV FLUSH FLUSH AFTER USING IV ACCESS; Start at 13:15; Stop 11/12/16 at 17:49; Status DC Vancomycin HCl 1000 mg/Sodium Chloride 250 ml @ 250 mls/hr ONCE STAT IV Last administered on 11/12/16t 14:32; Start 11/12/16 at 14:05; Stop 11/12/16 at 15:04 ; Status DC Aztreonam 2000 mg/ Sodium Chloride 100 ml @ 200 mls/hr ONCE STAT IV Last administered on 11/12/16 15:25; Start 11/12/16 at 14:05; Stop 11/12/16 at 14:34 ; Status DC Metronidazole 100 ml @ 100 mls/hr ONCE STAT IV Last administered on 14:12; Start 11/12/16 at 14:05; Stop 11/12/16 at 15:04; Status DC Sodium Chloride 1,000 ml @ 1,000 mls/hr Q1H ONCE IV Last administered on 14:12; Start 11/12/16 at 14:05; Stop 11/12/16 at 15:04; Status DC Sodium Chloride 1,000 ml @ 1,000 mls/hr Q1H ONCE IV Last administered on 14:17; Start 11/12/16 at 14:05; Stop 11/12/16 at 15:04; Status DC Sodium Chloride (NS 1000 ml Inj) 100 ml @ 1,000 mls/hr Q6M ONCE IV Last administered on 11/12/16 14:32; Start 11/12/16 at 14:05; Stop 11/12/16 at 14:18 ; Status DC Potassium Chloride 60 meq 60 meq ONCE ONCE PO ; Start 11/12/16 at 14:15; Stop 11/12/16 at 14:37; Status DC Potassium Chloride (KCl 10 Meq Premix Inj) 100 ml @ 100 mls/hr BOLUS ONCE IV Last administered on 11/12/16 15:06; Start 11/12/16 at 14:45; Stop 11/12/16 at 15:44; Status DC Iohexol 85 ml 85 ml STK-MED ONCE IV Last administered on 11/12/16 15:52; Start 11/12/16 at 15:52; Stop 11/12/16 at 15:53; Status DC Aztreonam 1000 mg/ Sodium Chloride 100 ml @ 200 mls/hr Q12H IV Last administered on 11/15/16 12:55; Start 11/13/16 at 02:00; Stop 11/15/16 at 13:38 ; Status DC Pharmacy Profile Note 0 ml @ 0 mls/hr UNSCH OTHER ; Start 11/12/16 at 17:15 Metronidazole (Flagyl 500 Mg Inj) 100 ml @ 100 mls/hr Q8H IV Last administered on 11/15/16 04:48; Start 11/12/16 at 22:00; Stop 11/15/16 at 13:39 ; Status DC Albuterol/ Ipratropium (Duoneb Neb) 1 ampule Q4HR NEB NEB Last administered on 11/16/16 07:20; Start 11/12/16 at 20:00 Guaifenesin 600 mg 600 mg BID PO Last administered on 11/15/16 19:24; Start at 21:00 Sodium Chloride (NS 1000 ml Inj) 1,000 ml @ 83 mls/hr Q12H3M IV Last administered on 11/15/16 17:17; Start 11/12/16 at 18:00 Sodium Chloride (NS Flush) 2 ml UNSCH PRN IV FLUSH FLUSH AFTER USING IV ACCESS ; Start 11/12/16 at 17:15 Sodium Chloride (NS Flush) 2 ml BID IV FLUSH ; Start 11/12/16 at 21:00 Acetaminophen (Tylenol) 650 mg Q4H PRN PO TEMP > 100.4; Start 11/12/16 at 17:15 Ondansetron HCl (Zofran Inj) 4 mg Q6H PRN IVP NAUSEA OR VOMITING; Start at 17:15 Bisacodyl (Dulcolax Supp) 10 mg DAILY PRN RECTAL CONSTIPATION; Start 11/12/16 at 17:15 Docusate Sodium (Colace) 100 mg Q12H PO Last administered on 11/16/16 05:07; Start 11/12/16 at 18:00 Heparin Sodium (Porcine) (Heparin Inj) 5,000 units Q12H SQ ; Start 11/12/16 at 17:15; Stop 11/12/16 at 17:20; Status DC Naloxone HCl (Narcan Inj) 0.4 mg UNSCH PRN IV SEE LABEL COMMENTS; Start at 17:15 Atorvastatin Calcium (Lipitor) 40 mg DAILY PO Last administered on 11/15/16 08 :44; Start 11/13/16 at 09:00 Clopidogrel Bisulfate (Plavix) 75 mg DAILY PO Last administered on 11/15/16 08 :44; Start 11/13/16 at 09:00 Donepezil HCl (Aricept) 10 mg HS PO Last administered on 11/15/16 19:25; Start 11/12/16 at 21:00 Levothyroxine Sodium (Synthroid) 75 mcg DAILY@06 PO Last administered on 05:07; Start 11/13/16 at 06:00 Memantine (Namenda) 10 mg BID PO Last administered on 11/15/16 19:25; Start at 21:00 Metoprolol Tartrate (Lopressor) 25 mg BID PO Last administered on 11/15/16 19: 24; Start 11/12/16 at 21:00 Mirtazapine (Remeron) 15 mg HS PO Last administered on 11/15/16 19:25; Start 11/12/16 at 21:00 Pantoprazole Sodium (Protonix) 40 mg DAILY PO Last administered on 11/15/16 08 :44; Start 11/13/16 at 09:00 Spironolactone (Aldactone) 25 mg DAILY PO Last administered on 11/15/16 08:44 ; Start 11/13/16 at 09:00 Non-Formulary Medication 1 tab DAILY PO CA; Start 11/13/16 at 09:00; Status UNV Non-Formulary Medication 50 mg HS PO ; Start 11/12/16 at 21:00; Status UNV Heparin Sodium (Porcine) (Heparin Inj) 5,000 units Q8HR SQ Last administered on 11/16/16 05:07; Start 11/12/16 at 22:00 Quetiapine Fumarate (SEROquel) 50 mg HS PO Last administered on 11/15/16 19:25 ; Start 11/12/16 at 21:00 Calcium/Vitamin D 500 mg 500 mg DAILY PO Last administered on 11/15/16 08:44; Start 11/13/16 at 09:00 Vancomycin HCl/ Sodium Chloride (Vancomycin Inj/ NS 500 ml Inj) 514 ml @ 250 mls/hr Q24H IV Last administered on 11/15/16 08:37; Start 11/13/16 at 08:00; Stop 11/15/16 at 09:04; Status DC Miscellaneous Information SPECIFIC LAB TO BE DRAWN:VANCO TROUGH DATE TO BE DRDamon.. ONCE ONCE .XX Last administered on 11/15/16 07:45; Start 11/15/16 at 07 :45; Stop 11/15/16 at 07:46; Status DC Gadodiamide (Omniscan Pf Inj) 20 ml STK-MED ONCE IV Last administered on 15:19; Start 11/13/16 at 15:19; Stop 11/13/16 at 15:20; Status DC Gadodiamide 16 ml 16 ml STK-MED ONCE IV ; Start 11/13/16 at 16:02; Stop at 16:03; Status Cancel Vancomycin HCl/ Sodium Chloride (Vancomycin Inj/ NS 250 ml Inj) 262.5 ml @ 250 mls/hr Q18H IV Last administered on 11/16/16 02:11; Start 11/16/16 at 02:00 Miscellaneous Information SPECIFIC LAB TO BE DRAWN:VANCOMYCIN TROUGH DATE TO... ONCE ONCE .XX ; Start 11/18/16 at 07:45; Stop 11/18/16 at 07:46 Levofloxacin 500 mg 500 mg DAILY@11 PO Last administered on 11/15/16 13:56; Start 11/15/16 at 13:45 Diltiazem HCl 125 mg/Sodium Chloride 125 ml @ 0 mls/hr TITRATE IV Last administered on 11/16/16 02:12; Start 11/16/16 at 00:45 Magnesium Sulfate/ Dextrose (Magnesium Sulfate 1 Gm Premix) 100 ml @ 100 mls/ hr ONCE ONCE IV Last administered on 11/16/16 01:00; Start 11/16/16 at 00:45 ; Stop 11/16/16 at 01:44; Status DC Potassium Chloride (KCl) 30 meq ONCE ONCE PO Last administered on 11/16/16 00 :59; Start 11/16/16 at 01:00; Stop 11/16/16 at 01:01; Status DC Miscellaneous Information Patient in critical care unit? Ass... Q361D .XX ; Start 11/16/16 at 02:15 Chlorhexidine Gluconate (Chlorhexidine 2% Cloth) 3 pack DAILY@04 TOPICAL Last administered on 11/16/16 04:00; Start 11/16/16 at 04:00; Stop 11/20/16 at 04:01 Chlorhexidine Gluconate (Chlorhexidine 2% Cloth) 3 pack UNSCH PRN TOPICAL HYGIENIC CARE; Start 11/16/16 at 02:15; Stop 11/21/16 at 02:13 A/P Assessment and Plan A/P 1. Acute on chronic Metabolic encephalopathy secondary to Dementia- now seems at her baseline. CXR positive for probable Pneumonia, given IV fluids, was started on Vancomycin-continue levaquin one of the bottles of the blood cultures with staph- gram negative- suspect contamination- will follow. 2.atrial fibrillation with rapid ventricular response started on Cardizem drip- will start po cardizem and try to taper off the drip - continue metoprolol- check echo and TSH. consult cardiology. 3. Dementia Alzheimer's Disease continue home medicines. Head CT with 0.8 cm hyperdense extra-axial mass in the anterior right pre- pontine cistern; possible meningioma or aneurysm. 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 It is probably partly thrombosed with No acute complication demonstrated. previously d/w the daughter ; requested no further diagnostic/therapeutic measures . she says that she'll see her neurologist as outpatient. 4. Hypertension continue Home medicines 4. Hypothyroidism to continue Hormonal replacement- check TSH. 5. Hyperlipidemia to continue Statins 6. CAD status post PCI and stent placement - continue plavix, BB and statin- cardiac enzymes negative. 7. Anxiety disorder continue home medicines. 8.lung mass- no further work-up as inpatient per the daughter's request. DVT prophylaxis with heparin DNR status per my discussion with the daughter. consulted PT. Discharge Planning SNF was offered but the daughter wants to take her home with [facility]. dc home with [facility] within the next one-two days if stable. Gama Crowley MD November 16, 2016 08:17
[2016-11-16] MEDS: PANTOPRAZOLE SOD 40 MG DELAYED RELEASE TAB PO SCH (08:43)
[2016-11-16] MEDS: MEMANTINE HCL 10 MG TAB PO SCH ×2 (08:43→21:53)
[2016-11-16] MEDS: CLOPIDOGREL 75 MG TAB PO SCH (08:43)
[2016-11-16] MEDS: DILTIAZEM HCL 30 MG TAB PO SCH ×3 (08:43→18:01)
[2016-11-16] MEDS: ATORVASTATIN 40 MG TAB PO SCH (08:43)
[2016-11-16] MEDS: guaiFENesin E.R. 600 MG TAB PO SCH ×2 (08:44→21:53)
[2016-11-16] MEDS: SPIRONOLACTONE 25 MG TAB PO SCH (08:44)
[2016-11-16] MEDS: METOPROLOL TARTRATE 25 MG TAB PO SCH ×2 (08:44→21:52)
[2016-11-16] MEDS: SODIUM CHLOR 0.9% 1000 ML INJ 1,000 ML IV SCH ×2 (08:45→18:24)
[2016-11-16] MEDS: CALCIUM/VITAMIN D 250 MG/125 U TAB PO SCH (08:45)
[2016-11-16] MEDS: SODIUM CHLORIDE 0.9% FLUSH 10 ML FLUSH IV FLUSH SCH ×2 (09:00→21:52)
[2016-11-16] MEDS: LEVOFLOXACIN 500 MG TAB PO SCH (10:08)
[2016-11-16] MEDS: ASPIRIN 81 MG CHEW TAB CHEW SCH (10:28)
--- NOTE | 2016-11-16 10:31 | MB ---
cc: RAYSHAWN GUSMAN DO DATE OF CONSULTATION: November 16, 2016 REASON FOR CONSULTATION Atrial fibrillation with rapid ventricular response. HISTORY OF PRESENT ILLNESS Lauren Rizvi is a pleasant 76-year-old female who presented to [facility] on November 12, 2016 for evaluation of lethargy. The patient lives with her daughter and they noticed over the past week she has had a cough and low grade fever. While in the hospital she was diagnosed with acute on chronic metabolic encephalopathy secondary to dementia. There was a plan for discharge but before this happened she was noted to go into atrial fibrillation with rapid ventricular response. Per previous notes, she had a history of this in 2012 also. She has since been placed on a Cardizem drip and given Cardizem orally. In speaking to her she denies chest pain, shortness of breath or palpitations. PAST MEDICAL HISTORY 1. Dementia, Alzheimer's disease. 2. Hypertension. 3. Hypothyroidism. 4. Paroxysmal atrial fibrillation. 5. Hyperlipidemia. 6. Coronary artery disease. 7. Anxiety disorder. PAST SURGICAL HISTORY 1. Cardiac catheterization (December 16, 2012). Left main minimally irregular. LAD is a small to medium size vessel with a mid vessel lesion of 60% (FFR 0.96). Circumflex is codominant. First obtuse marginal is small with a 75% narrowing at the origin. There is an additional medium caliber posterior lateral branch which is mildly irregular. RCA is codominant. 25-30% in the RCA with the distal vessel being very small. 2. Previous coronary PCI (unknown coronary, unknown time). 3. . 4. GONZÁLEZ. 5. Tonsillectomy. ALLERGIES 1. LASIX. 2. PENICILLIN. MEDICATIONS 1. Mirtazapine 15 mg every night. 2. Seroquel 50 mg every night. 3. Albuterol 2 puffs every 6 hours as needed for shortness of breath. 4. Metoprolol tartrate 25 mg b.i.d. 5. Namenda 10 mg b.i.d. 6. Lipitor 40 mg daily. 7. Aldactone 25 mg daily. 8. Donepezil 10 mg every night. 9. Plavix 75 mg daily. 10. Protonix 40 mg daily. 11. Synthroid 75 mcg daily. FAMILY HISTORY Unable to be determined at this time. SOCIAL HISTORY The patient lives with her daughter and son-in-law. Denies tobacco, alcohol or drug abuse. REVIEW OF SYSTEMS 14-systems were reviewed including osteopathic pertinent positives and negatives as above, otherwise negative. PHYSICAL EXAMINATION VITAL SIGNS: Temperature 98.1, heart rate 110, blood pressure 123/63, respirations 20, pulse ox 97% on 2 liters. GENERAL: The patient appears well. No acute distress, alert, awake but pleasantly demented. HEENT: Extraocular muscles intact. Mucous membranes moist. NECK: Supple. No JVD at 45 degrees. No carotid bruits heard bilaterally. Carotid upstroke is brisk in nature. HEART: Irregularly, irregular. Positive first and second heart sounds with a 1/6 crescendo-decrescendo murmur to the right sternal border. LUNGS: Lungs are relatively clear bilaterally. No overt wheezes, rales or rhonchi. ABDOMEN: Soft, nontender, nondistended. No organomegaly noted. EXTREMITIES: Show no clubbing, cyanosis or edema. Femoral and distal pulses intact bilaterally. NEUROLOGIC: No focal deficits. SKIN: Warm, dry and intact. OSTEOPATHIC: Mild kyphoscoliosis, no lordosis or paraspinal tender points. LABORATORY FINDINGS Hemoglobin 9.9, hematocrit 28.7, platelets 100. Potassium 3.3, BUN 10, creatinine 0.87. ELECTROCARDIOGRAM Electrocardiogram (November 16, 2016 at 0013) atrial fibrillation with rapid ventricular response, rare PVC versus aberrancy. Left axis deviation. Possible LVH with secondary ST-T wave changes. IMPRESSION 1. Paroxysmal atrial fibrillation with rapid ventricular response, CHADSVASc score equals 4 (age x2, hypertension, female gender). 2. Chronic metabolic encephalopathy secondary to dementia with an acute phase possibly due to sepsis. 3. Hypertension. 4. Hypothyroidism. 5. Hyperlipidemia. 6. Coronary artery disease status post previous PCI. 7. Anxiety disorder. 8. Anemia of unknown cause. 9. Mild thrombocytopenia. 10. 1.7 cm lung mass. 11. Varices in the left upper quadrant which could be related to portal hypertension. RECOMMENDATIONS 1. Ms. Rizvi appears to have had an episode of paroxysmal atrial fibrillation. Her previous episode was in 2012 and at that time she had a CHADS2 score of 1 and was treated with aspirin. Since that time she is no longer on aspirin but Plavix and her daughter is unsure why. 2. Her heart rates are relatively controlled and we will try to place her on Cardizem PO as well as her metoprolol for heart rate control. After these are given, we will attempt to wean off her Cardizem drip. 3. Although she does have a CHADSVASc score of 4, my concern is her anemia, thrombocytopenia and varices on CT scan. I also spoke with her daughter who states that although she has had no falls she has definitely had near falls multiple times. I did speak with the daughter extensively and I feel that she is not a great anticoagulation candidate and her daughter agrees. 4. Because we will not be placing her on anticoagulation, I feel that she should at least be on aspirin to go along with her Plavix for her previous PCI. 5. Will check a 2-D echo to look at her overall left ventricular function, cardiac structure and possible valvulopathies. 6. Further recommendations will be made throughout the hospital course. Thank you for allowing me to see Lauren Rizvi, if there are any questions, please do not hesitate to call. Rayshawn Gusman DO VGP/TLL /9:36 AM /10:03 AM MTDGenevieve
[2016-11-16] MEDS ORDERED: DILTIAZEM HCL 30 MG TAB PO ONE (18:45)
--- NOTE | 2016-11-16 19:32 | EKG ---
Date Performed: 11/16/2016 Time Performed: 00:13:04 PTAGE: 76 years EKG: Atrial fibrillation with rapid ventricular response with PVC(s) Left axis deviation Possibl e left ventricular hypertrophy Lateral T wave changes are probably due to ventricular hypertrophy Abn ormal ECG NO PREVIOUS TRACING Compared to the previous tracing a fib now present DOCTOR: Tameka Johnson Interpretating Date/Time 11/16/2016 19:31:16
[2016-11-16] MEDS: DONEPEZIL HCL 5 MG TAB PO SCH (21:52)
[2016-11-16] MEDS: QUEtiapine FUMARATE 25 MG TAB PO SCH (21:53)
[2016-11-16] MEDS: MIRTAZAPINE 15 MG TAB PO SCH (21:53)
[2016-11-17] VITALS (32 sets, daily range): BP systolic 90–135; BP diastolic 50–64; PULSE 65–80; RESP 6–33; TEMP 98.5; O2SAT 82–100
[2016-11-17] MEDS: HEPARIN SODIUM - SQ 10,000 UNITS/ML VIAL SQ SCH ×3 (01:10→13:13)
[2016-11-17] MEDS: DILTIAZEM HCL 60 MG TAB PO SCH ×2 (01:10→05:55)
[2016-11-17] MEDS: CHLORHEXIDINE GLUCONATE 2 % 1 PACK (2 CLOTHS)(taper/protocol) TOPICAL SCH (01:11)
[2016-11-17] MEDS: DOCUSATE SODIUM 100 MG CAP PO SCH ×2 (05:54→17:11)
[2016-11-17] MEDS: LEVOTHYROXINE SODIUM 75 MCG TAB PO SCH (05:54)
--- NOTE | 2016-11-17 08:24 | EC ---
Study Study Date:11/16/2016 STUDY CONCLUSIONS SUMMARY - Procedure narrative: Image quality was fair. The study was technically limited due to poor acoustic window availability. - Left ventricle: The cavity size was normal. Wall thickness was normal. Systolic function was normal. The estimated ejection fraction was in the range of 60% to 65%. Wall motion was normal; there were no regional wall motion abnormalities. The study is not technically sufficient to allow evaluation of LV diastolic function. - Mitral valve: Mildly calcified annulus. Mild to moderate regurgitation. If LV function is below 40, please consider prescribing an ACEI or ARB or document rationale for non-use. PROCEDURE DATA STUDY STATUS: Elective. Procedure: Transthoracic echocardiography. Image quality was fair. The study was technically limited due to poor acoustic window availability. Scanning was performed from the parasternal, apical, and subcostal acoustic windows. Study completion: The patient tolerated the procedure well. Transthoracic echocardiography. M-mode, complete 2D, complete spectral Doppler, and color Doppler. Height: Height: 67in. Weight: Weight: 179.6lb. Body mass index: BMI: 28.2kg/m^2. Body surface area: BSA: 1.93m^2. Patient status: Inpatient. CARDIAC ANATOMY LEFT VENTRICLE: The cavity size was normal. Wall thickness was normal. Systolic function was normal. The estimated ejection fraction was in the range of 60% to 65%. Wall motion was normal; there were no regional wall motion abnormalities. The study is not technically sufficient to allow evaluation of LV diastolic function. AORTIC VALVE: The valve appears to be grossly normal. Doppler: There was no stenosis. No significant regurgitation. Valve area: 1.98cm^2 (Vmax). Indexed valve area: 1.03cm^2/m^2 (Vmax). MITRAL VALVE: Mildly calcified annulus. Doppler: There was no evidence for stenosis. Mild to moderate regurgitation. Valve area by pressure half-time: 3.86cm^2. Indexed valve area by pressure half-time: 2cm^2/m^2. LEFT ATRIUM: The atrium was mildly dilated. RIGHT VENTRICLE: The cavity size was normal. PULMONIC VALVE: Not visualized. Doppler: There was no evidence for stenosis. No significant regurgitation. TRICUSPID VALVE: The valve appears to be grossly normal. Doppler: There was no evidence for stenosis. Trace to mild regurgitation. Peak gradient: 25mm Hg (D). PERICARDIUM: There was no pericardial effusion. Patient weight: 179.6lb _Ejection fraction:_ 65-75% _Fractional shortening:_ 32% up to 5Kg 5-11.5Kg 11.6-22.9Kg 23-45Kg 45-57Kg Aortic Root 7-13 <17 13-22 17-27 17-27 LA diam 6-13 <23 24-38 33-47 37-40 RVID 10-17 7-15 7-15 7-18 8-17 LVIDd 12-22 <32 24-38 33-47 37-40 LVPW 2-4 3-6 5-7 6-8 7-8 IVS 2-4 3-6 5-7 6-8 7-8 BASIC MEASUREMENTS ADULT NORMAL Left ventricle Volume, ED, MOD, 1-plane 34 ml Volume, ES, MOD, 1-plane 12 ml Ejection fraction, MOD, 1-plane 65 % Stroke volume, MOD, 1-plane 22 ml Volume index, ED, MOD, 1-plane 18 ml/m^2 Volume index, ES, MOD, 1-plane 6 ml/m^2 Stroke index, MOD, 1-plane 11.4 ml/m^2 Aortic valve Leaflet separation 19 mm 15-26 Right ventricle RV internal dimension, ED, PLAX 26.5 mm 19-38 BASIC MEASUREMENTS ADULT NORMAL Left ventricle LV internal dimension, ED 49.2 mm 37-56 LV internal dimension, ES 32.3 mm Fractional shortening 34 % 29-45 LV posterior wall, ED 10.5 mm 6-11 Septal/posterior wall ratio, ED 1 Relative wall thickness, ED 0.43 <0.45 Volume, ED, Teichholz 114 ml Volume, ES, Teichholz 41.9 ml Ejection fraction, Teichholz *63.2 % 64-83 Stroke volume, Teichholz 72.1 ml Volume index, ED, Teichholz 59 ml/m^2 Volume index, ES, Teichholz 22 ml/m^2 Stroke index, Teichholz 37.4 ml/m^2 Wall mass 189.3 g Wall mass index 98.1 g/m^2 Mass/height 1.11 g/cm Ventricular septum Septal thickness, ED 10.5 mm Aortic valve Leaflet separation 19 mm 15-26 Aorta Root diameter, ED 29 mm 20-37 Left atrium Anterior-posterior dimension, ES *41 mm 19-40 Anterior-posterior dimension index, ES 2.12 cm/m^2 <2.2 LA/aortic root ratio 1.41 DOPPLER MEASUREMENTS ADULT NORMAL Aortic valve Peak velocity, S 128 cm/s Valve area, Vmax 1.98 cm^2 Valve area index, Vmax 1.03 cm^2/m^2 Mitral valve Pressure half-time 57 ms Valve area, pressure half-time 3.86 cm^2 Valve area index, pressure half-time 2 cm^2/m^2 Tricuspid valve Peak gradient, D 25 mm Hg Maximal inflow velocity 251 cm/s Systemic veins Estimated CVP 10 mm Hg Pulmonic valve Peak velocity, S 110 cm/s LEGEND: Mean values are shown as u=mean value. Asterisk (*) lee values outside specified normal range. Prepared and signed by Rayshawn Childs [id number]
[2016-11-17] MEDS: CLOPIDOGREL 75 MG TAB PO SCH (09:01)
[2016-11-17] MEDS: ATORVASTATIN 40 MG TAB PO SCH (09:01)
[2016-11-17] MEDS: CALCIUM/VITAMIN D 250 MG/125 U TAB PO SCH (09:01)
[2016-11-17] MEDS: guaiFENesin E.R. 600 MG TAB PO SCH (09:02)
[2016-11-17] MEDS: ASPIRIN 81 MG CHEW TAB CHEW SCH (09:02)
[2016-11-17] MEDS: SPIRONOLACTONE 25 MG TAB PO SCH (09:02)
[2016-11-17] MEDS: MEMANTINE HCL 10 MG TAB PO SCH (09:02)
[2016-11-17] MEDS: PANTOPRAZOLE SOD 40 MG DELAYED RELEASE TAB PO SCH (09:02)
[2016-11-17] MEDS: METOPROLOL TARTRATE 25 MG TAB PO SCH (09:02)
[2016-11-17] MEDS: SODIUM CHLORIDE 0.9% FLUSH 10 ML FLUSH IV FLUSH SCH (09:02)
[2016-11-17] MEDS: LEVOFLOXACIN 500 MG TAB PO SCH (10:59)
[2016-11-17] MEDS: DILTIAZEM HCL 30 MG TAB PO SCH ×2 (10:59→17:11)
--- NOTE | 2016-11-17 12:32 | PD.CARD.PN ---
Subjective Subjective Remarks Doing well, no chest pain, no shortness of breath Objective Medications Current Medications Medications (Trade) Dose Ordered Sig/Sp Route Start Time Stop Time Status Last Admin (Vancomycin Consult Pharmacy) 0 ml @ 0 mls/hr UNSCH OTHER 11/12/16 17:15 (Mucinex Er) 600 mg BID PO 11/12/16 21:00 11/17/16 09:02 (NS Flush) 2 ml UNSCH PRN IV FLUSH 11/12/16 17:15 (NS Flush) 2 ml BID IV FLUSH 11/12/16 21:00 11/17/16 09:02 (Tylenol) 650 mg Q4H PRN PO 11/12/16 17:15 (Zofran Inj) 4 mg Q6H PRN IVP 11/12/16 17:15 (Dulcolax Supp) 10 mg DAILY PRN RECTAL 11/12/16 17:15 (Colace) 100 mg Q12H PO 11/12/16 18:00 11/17/16 05:54 (Narcan Inj) 0.4 mg UNSCH PRN IV 11/12/16 17:15 (Lipitor) 40 mg DAILY PO 11/13/16 09:00 11/17/16 09:01 (Plavix) 75 mg DAILY PO 11/13/16 09:00 11/17/16 09:01 (Aricept) 10 mg HS PO 11/12/16 21:00 11/16/16 21:52 (Synthroid) 75 mcg DAILY@06 PO 11/13/16 06:00 11/17/16 05:54 (Namenda) 10 mg BID PO 11/12/16 21:00 11/17/16 09:02 (Lopressor) 25 mg BID PO 11/12/16 21:00 11/17/16 09:02 (Remeron) 15 mg HS PO 11/12/16 21:00 11/16/16 21:53 (Protonix) 40 mg DAILY PO 11/13/16 09:00 11/17/16 09:02 (Aldactone) 25 mg DAILY PO 11/13/16 09:00 11/17/16 09:02 (Heparin Inj) 5,000 units Q8HR SQ 11/12/16 22:00 11/17/16 05:53 (SEROquel) 50 mg HS PO 11/12/16 21:00 11/16/16 21:53 Calcium/Vitamin D 500 mg 500 mg DAILY PO 11/13/16 09:00 11/17/16 09:01 (Vancomycin Inj/ NS 250 ml Inj) 262.5 ml @ 250 mls/hr Q18H IV 11/16/16 02:00 11/16/16 21:51 Miscellaneous Information SPECIFIC LAB TO BE DRAWN:VANCOMYCIN TROUGH DATE TO... ONCE ONCE .XX 11/18/16 07:45 11/18/16 07:46 Levofloxacin 500 mg 500 mg DAILY@11 PO 11/15/16 13:45 11/17/16 10:59 (Cardizem Inj/NS Inj) 125 ml @ 0 mls/hr TITRATE IV 11/16/16 00:45 11/16/16 02:12 Miscellaneous Information Patient in critical care unit? Ass... Q361D .XX 11/16/16 02:15 (Chlorhexidine 2% Cloth) 3 pack DAILY@04 TOPICAL 11/16/16 04:00 11/20/16 04:01 11/17/16 01:11 (Chlorhexidine 2% Cloth) 3 pack UNSCH PRN TOPICAL 11/16/16 02:15 11/21/16 02:13 (Aspirin Chew) 81 mg DAILY CHEW 11/16/16 10:00 11/17/16 09:02 (Cardizem) 30 mg Q6HR PO 11/17/16 12:00 11/17/16 10:59 Vital Signs / I&O Vital Signs Date Time Temp Pulse Resp B/P Pulse Ox O2 Delivery O2 Flow Rate FiO2 11/17/16 11:00 72 11/17/16 10:42 69 11/17/16 10:00 77 11/17/16 09:00 65 20 127/64 100 11/17/16 09:00 65 11/17/16 08:00 68 11/17/16 08:00 75 11/17/16 08:00 68 17 117/57 99 11/17/16 07:52 98 Nasal Cannula 2.00 11/17/16 07:00 99 Room Air 11/17/16 06:00 80 11/17/16 05:00 65 11/17/16 05:00 65 19 94/50 94 11/17/16 04:00 98.5 78 20 104/56 96 11/17/16 04:00 78 11/17/16 03:00 67 6 90/52 95 11/17/16 02:00 78 11/17/16 02:00 78 23 111/56 95 11/17/16 01:01 76 24 135/58 11/17/16 01:00 78 26 11/17/16 00:00 77 11/17/16 00:00 77 21 105/59 11/16/16 23:00 81 22 102/52 93 11/16/16 23:00 81 11/16/16 22:00 102 11/16/16 22:00 102 19 133/64 99 11/16/16 21:00 104 11/16/16 21:00 104 25 129/59 97 11/16/16 20:00 98.6 131 27 99/66 11/16/16 20:00 131 11/16/16 19:24 92 Nasal Cannula 2.00 11/16/16 19:00 99 Nasal Cannula 2.00 26 11/16/16 17:00 111 25 120/70 97 11/16/16 17:00 111 11/16/16 16:00 112 24 119/61 11/16/16 16:00 112 11/16/16 15:00 112 11/16/16 15:00 112 23 123/75 11/16/16 14:00 130 11/16/16 14:00 130 27 119/76 95 11/16/16 14:00 130 27 119/76 95 11/16/16 14:00 130 11/16/16 13:00 114 11/16/16 13:00 114 31 113/80 92 11/16/16 13:00 114 31 113/80 92 11/16/16 13:00 114 I/O 11/16/16 11/16/16 11/16/16 11/17/16 11/17/16 11/17/16 06:59 14:59 22:59 06:59 14:59 22:59 Intake Total 630 ml 1510 ml 480 ml 240 ml Output Total 600 ml Balance 630 ml 910 ml 480 ml 240 ml Intake Oral 240 ml 830 ml 480 ml 240 ml IV Total 390 ml 680 ml Output Urine Total 600 ml # Voids 1 2 1 1 # Bowel Movements 2 1 0 Physical Exam GENERAL: NAD, Alert and awake SKIN: Warm and dry. HEAD: Atraumatic. Normocephalic. EYES: Pupils equal and round. No scleral icterus. No injection or drainage. ENT: No nasal bleeding or discharge. Mucous membranes pink and moist. NECK: Trachea midline. No JVD. CARDIOVASCULAR: Regular rate and rhythm. RESPIRATORY: No accessory muscle use. Clear to auscultation. Breath sounds equal bilaterally. GASTROINTESTINAL: Abdomen soft, non-tender, nondistended. Hepatic and splenic margins not palpable. MUSCULOSKELETAL: Extremities without clubbing, cyanosis, or edema. No obvious deformities. NEUROLOGICAL: Awake and alert. No obvious cranial nerve deficits. Motor grossly within normal limits. Five out of 5 muscle strength in the arms and legs. Normal speech. PSYCHIATRIC: Appropriate mood and affect; insight and judgment normal. Laboratory Laboratory Tests Test 11/17/16 05:37 Creatinine 0.80 MG/DL Estimat Glomerular Filtration 70 ML/MIN Rate Assessment and Plan Problem List: (1) Atrial fibrillation (2) Hypothyroidism (3) Dementia (4) Dyslipidemia (5) CAD (coronary artery disease) Assessment and Plan 1) Heart rate controlled Cardizem held this morning, will plan to decrease to 30mg q6 2) No anticoagulation due to unstable gate, anemia/thrombocytopenia Discussed again with daughter who is in agreement 3) If stable later today, may be discharged from a cardiovascular stand point Will see PRN, call with questions Rayshawn Childs DO November 17, 2016 12:32
[2016-11-17] MEDS: VANCOMYCIN INJ 1,250 MG in SODIUM CHLOR 0.9% 250 ML INJ 250 ML IV SCH (13:13)
--- NOTE | 2016-11-17 15:46 | HHI.PR ---
Subjective Remarks patient seen with supportive daughter no complains po 100% telemetry- rate controlled Objective Vitals Vital Signs Date Time Temp Pulse Resp B/P Pulse Ox O2 Delivery O2 Flow Rate FiO2 11/17/16 14:00 71 11/17/16 14:00 71 11/17/16 13:00 71 11/17/16 13:00 71 21 114/55 92 11/17/16 13:00 71 11/17/16 13:00 71 11/17/16 12:00 69 11/17/16 12:00 69 11/17/16 12:00 69 23 100/55 90 11/17/16 12:00 69 11/17/16 11:00 72 11/17/16 11:00 72 26 107/55 96 11/17/16 11:00 72 11/17/16 11:00 72 11/17/16 11:00 72 11/17/16 10:42 69 22 103/54 95 11/17/16 10:42 69 11/17/16 10:42 69 11/17/16 10:42 69 11/17/16 10:42 69 11/17/16 10:00 77 11/17/16 10:00 77 23 11/17/16 10:00 77 11/17/16 10:00 77 11/17/16 10:00 77 11/17/16 09:00 65 20 127/64 100 11/17/16 09:00 65 11/17/16 09:00 65 11/17/16 09:00 65 11/17/16 09:00 65 11/17/16 09:00 65 20 127/64 100 11/17/16 08:00 68 11/17/16 08:00 68 11/17/16 08:00 68 11/17/16 08:00 75 11/17/16 08:00 68 11/17/16 08:00 68 17 117/57 99 11/17/16 08:00 68 17 117/57 99 11/17/16 07:52 98 Nasal Cannula 2.00 11/17/16 07:00 99 Room Air 11/17/16 06:00 80 11/17/16 05:00 65 11/17/16 05:00 65 19 94/50 94 11/17/16 04:00 98.5 78 20 104/56 96 11/17/16 04:00 78 11/17/16 03:00 67 6 90/52 95 11/17/16 02:00 78 11/17/16 02:00 78 23 111/56 95 11/17/16 01:01 76 24 135/58 11/17/16 01:00 78 26 11/17/16 00:00 77 11/17/16 00:00 77 21 105/59 11/16/16 23:00 81 22 102/52 93 11/16/16 23:00 81 11/16/16 22:00 102 11/16/16 22:00 102 19 133/64 99 11/16/16 21:00 104 11/16/16 21:00 104 25 129/59 97 11/16/16 20:00 98.6 131 27 99/66 11/16/16 20:00 131 11/16/16 19:24 92 Nasal Cannula 2.00 11/16/16 19:00 99 Nasal Cannula 2.00 26 11/16/16 17:00 111 25 120/70 97 11/16/16 17:00 111 11/16/16 16:00 112 24 119/61 11/16/16 16:00 112 I/O 11/16/16 11/16/16 11/16/16 11/17/16 11/17/16 11/17/16 07:00 15:00 23:00 07:00 15:00 23:00 Intake Total 630 ml 1510 ml 480 ml 240 ml 520 ml Output Total 600 ml 300 ml Balance 630 ml 910 ml 480 ml 240 ml 220 ml Intake Oral 240 ml 830 ml 480 ml 240 ml 520 ml IV Total 390 ml 680 ml Output Urine Total 600 ml 300 ml # Voids 1 2 1 1 1 # Bowel Movements 2 1 0 Result Diagram: 11/13/16 0115 11/17/16 0537 Imaging Last Impressions Brain MRI 11/13/16 0000 Signed Impressions: Service Date/Time: Sunday, November 13, 2016 15:40 - 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 No acute complication demonstrated.. Behzad Ascencio MD Head CT 11/12/16 1305 Signed Impressions: Service Date/Time: Saturday, November 12, 2016 15:41 - CONCLUSION: 1. 0.8 cm hyperdense extra-axial mass in the anterior right pre-pontine cistern. An aneurysm or other mass such as a meningioma should be considered. Provided there is no contraindication, this should be further evaluated with a MRI examination. No acute mass effect is seen. 2. Atrophy. Behzad Valverde MD Chest X-Ray 11/12/16 1305 Signed Impressions: Service Date/Time: Saturday, November 12, 2016 13:10 - CONCLUSION: Mild right mid lung perihilar opacity indicating atelectasis versus minimal consolidation. Nicolas Winslow MD Abdomen/Pelvis CT 11/12/16 1305 Signed Impressions: Service Date/Time: Saturday, November 12, 2016 15:48 - CONCLUSION: 1. The cause of the patient's abdominal pain is not seen. 2. Varices in the left upper quadrant. This could be related to portal hypertension. The spleen is not enlarged, however. 3. 1.7 cm mass seen at the posteromedial left lower chest. This is incompletely evaluated on the CT of the abdomen. A CT of the chest would be recommended. 4. Fatty infiltration of the pancreas. 5. Colonic diverticula. Behzad Valverde MD Objective Remarks awake and alert, baseline dementia, smiling and ff commands, oriented to person and identified daughter, speech soft but clear anicteric lungs no rales irregular rhythm abdomen soft, notnender extrmeities no edema moves all extremites equally Procedures none A/P Problem List: (1) Altered mental status ICD Code: R41.82 Status: Acute Assessment and Plan 76 years old female 1. Acute on chronic Metabolic encephalopathy secondary to Dementia- now seems at her baseline. CXR positive for probable Pneumonia, given IV fluids, was started on Vancomycin, Azactam and Flagyl in ER will deescalate the antibiotics ; switch to po levaquin upon discharge. 2. Dementia Alzheimer's Disease continue home medicines. Head CT with 0.8 cm hyperdense extra-axial mass in the anterior right pre- pontine cistern; possible meningioma or aneurysm. 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 It is probably partly thrombosed with No acute complication demonstrated. d/w the daughter at the bedside- requested no further diagnostic/therapeutic measures . she says that she'll see her neurologist as outpatient. 3. Hypertension continue Home medicines 4. Hypothyroidism to continue Hormonal replacement 5. Hyperlipidemia to continue Statins 6. CAD status post PCI and stent placement - continue plavix, BB and statin- cardiac enzymes negative. 7. Anxiety disorder continue home medicines. 8.lung mass- no further work-up as inpatient per the daughter's request. New Medications: Levofloxacin (Levaquin) 500 Mg Tab 500 MG PO DAILY Infection Days 7 Ref 0 TAB Continued Medications: Albuterol 6.7 GM Inh (Proventil Hfa 6.7 GM Inh) 90 Mcg/Act Aer 2 PUFF INH Q6H PRN SHORTNESS OF BREATH #1 Ref 0 INHALER Atorvastatin (Atorvastatin) 40 Mg Tab 40 MG PO DAILY Cholesterol Management #30 Ref 0 TAB Calcium Carbonate-Vitamin D (Oscal 500/200 D-3) 500-200 Mg-Unit Tab 1 TAB PO DAILY Calcium Supplement Ref 0 TAB Clopidogrel (Plavix) 75 Mg Tab 75 MG PO DAILY Blood Clot Prevention #30 Ref 0 TAB Donepezil (Donepezil) 10 Mg Tab 10 MG PO HS Dementia #30 Ref 0 TAB Levothyroxine (Synthroid) 75 Mcg Tab 75 MCG PO DAILY Thyroid #30 Ref 0 TAB Memantine (Namenda) 10 Mg Tab 10 MG PO BID Alzheimer Disease #30 Ref 0 TAB Metoprolol Tartrate (Metoprolol Tartrate) 25 Mg Tab 25 MG PO BID #60 Ref 0 TAB Mirtazapine (Mirtazapine) 15 Mg Tab 15 MG PO HS Depression Control #30 Ref 0 TAB Pantoprazole (Pantoprazole) 40 Mg Tab 40 MG PO DAILY Reflux #30 Ref 0 TAB Quetiapine (Seroquel) 50 Mg Tab 50 MG PO HS #30 Ref 0 TAB Spironolactone (Aldactone) 25 Mg Tab 25 MG PO DAILY #30 Ref 0 TAB d/w CM- Martina- waiting for approval - Insurance- DB d/w daughter- agrees Problem Qualifiers (1) Altered mental status: Qualified Code: R41.0 - Delirium Carter French MD November 17, 2016 15:45
[2016-11-17] MEDS ORDERED: DILT31TA PO (15:51)
[2016-11-17] MEDS ORDERED: SYNT88TA PO (15:56)
[2016-11-18] MEDS ORDERED: LEVOTHYROXINE SODIUM 88 MCG TAB PO SCH (06:00)
[2016-11-18] MEDS ORDERED: PHARMACY ORDERED LAB ONE (07:45)
--- NOTE | 2016-11-22 11:44 | PQ ---
Physician Query Response Document PATIENT: GERARDO CURRIE : 1940 ADMIT DATE: 11/12/2016 4:57 PM DISCH DATE: 11/17/2016 6:30 PM RESPONDING PROVIDER #: [email or web address] QUERY TEXT: Rule Out Sepsis Clarification Sepsis is documented in the Medical Record. Please clarify whether: -- Patient has sepsis - Please document confirmed, suspected or probable causative organism - Please document confirmed, suspected or probable localized infection - Please clarify if sepsis is related to a device - Please clarify if sepsis was present on admission -- Sepsis was ruled out (include corresponding diagnosis for patient?s clinical picture and treatment ) -- Patient had sepsis which is resolved -- Other, please specify If you have any additional questions/comments and/or concerns, please do not hesitate to reach out ot the [facility]/Coding Hotline, Ext [phone]. The patient's Clinical Indicators include: From D/S - Admitting Diagnosis: sepsis, pneumonia, AMS. Sepsis not on diagnosis list in D/S. Progress Note 11/13/16: 1. Acute on chronic Metabolic encephalopathy secondary to Dementia, probable Sepsis she has positive Lactic Acid 3.7. CXR positive for probable Pneumonia, given IV fluids, was s tarted on Vancomycin, Azactam and Flagyl in ER. Will deescalate the antibiotics soon when the cultur es resulted. Progress Note 11/15/16: 1. Acute on chronic Metabolic encephalopathy secondary to Dementia- now seems at her baseline. CXR positive for probable Pneumonia, given IV fluids, was started on Vancomycin,- will dc Azactam and flagyl- will start levaquin. One of the bottles of the blood cultures with staph- gram negative- childs spect contamination- d/w the microbiology; BC will be finalized tomorrow. (Final culture report - no growth in 5 days). Query created by: Josette Ortega on 11/21/2016 6:08 PM RESPONSE TEXT: No sepsis. Electronically signed by: Gama Crowley MD 11/22/2016 11:40 AM
== END 2016-11-17 18:30 | DRG 193 ==
LOC: NEPC 12:50 → NEDA 16:57 → N07B 19:10 → HIMN 11-16 01:55
PROVIDERS: ADMIT Internal Medicine; ATTEND Internal Medicine
DX: J18.9 Pneumonia, unspecified organism (principal); G93.41 Metabolic encephalopathy; I67.1 Cerebral aneurysm, nonruptured; D69.6 Thrombocytopenia, unspecified; I25.10 Atherosclerotic heart disease of native coronary artery without angina pectoris; Z95.5 Presence of coronary angioplasty implant and graft; G30.9 Alzheimer's disease, unspecified; F02.80 Dementia in other diseases classified elsewhere, unspecified severity, without behavioral disturbance, psychotic disturbance, mood disturbance, and anxiety; I48.0 Paroxysmal atrial fibrillation; D64.9 Anemia, unspecified; I10 Essential (primary) hypertension; F41.9 Anxiety disorder, unspecified; E78.5 Hyperlipidemia, unspecified; E03.9 Hypothyroidism, unspecified; I86.8 Varicose veins of other specified sites; R26.9 Unspecified abnormalities of gait and mobility; Z66 Do not resuscitate; Z86.010 Personal history of colon polyps; R91.8 Other nonspecific abnormal finding of lung field
CPT/HCPCS: 51702; 70450; 70553; 71010; 74177; 80048; 80053; 80202; 81001; 82550; 82565; 82948; 83605; 83690; 83735; 84443; 84484; 85025; 85610; 85730; 86403; 87040; 87077; 87086; 87186; 87205; 87449; 87641; 93005; 93306; 94150; 94640; 94664; 96365; 96367; A9579; J1644; J3370; J3475; J3480; J7030; J7040; J7050; Q9967